=== PATIENT | male | born 1980 | race Caucasian/White ===

== ENCOUNTER 2016-10-18 16:09 | Inpatient (IN) | payer MEDICAID ==
[~2016-10-18] VITALS: Ht 170.2 cm; Wt 89.4 kg
[~2016-10-18 16:09] MED LIST: COLACE100 M1 PO; KEFLEX250 MG PO
[2016-10-18 16:27] VITALS: BP 139/71
--- NOTE | 2016-10-18 17:29 | NUR ---
PATIENT WHEELCHAIR ASSISTED TO BED 2 AT THIS TIME.
--- NOTE | 2016-10-18 17:30 | NUR ---
36/M BIB FAMILY C/O LEFT SIDED CHEST AND BODY PAIN ALTERNATING W/NUMBNESS X 3 DAYS. HX ESRD ON DIALYSIS 4XWEEKLY, HTN, DVT. PT DENIES N/V/D; SKIN IS PINK/WARM/DRY; HD SITE R THIGH + BRUIT & THRILL ; OLD HD SITE L ARM ; AAOX4 ; LUNGS CLEAR BL; HR EVEN AND REGULAR; PT DENIES ANY FEVER, SOB, OR COUGH AT THIS TIME; PATIENT STATES PAIN OF 9/10 AT THIS TIME; PATIENT POSITIONED FOR COMFORT; HOB ELEVATED; BEDRAILS UP X2; BED DOWN. ER MD MADE AWARE OF PT STATUS.
--- NOTE | 2016-10-18 17:30 | NUR ---
Note undone in EDM - 10/18/16 at 1925 by [email or web address] 36/M BIB FAMILY C/O LEFT SIDED CHEST AND BODY PAIN ALTERNATING W/NUMBNESS X 3 DAYS. HX ESRD ON DIALYSIS 4XWEEKLY, HTN, DVT. PT DENIES N/V/D; SKIN IS PINK/WARM/DRY; AAOX4 WITH EVEN AND STEADY GAIT; LUNGS CLEAR BL; HR EVEN AND REGULAR; PT DENIES ANY FEVER, SOB, OR COUGH AT THIS TIME; PATIENT STATES PAIN OF 9/10 AT THIS TIME; PATIENT POSITIONED FOR COMFORT; HOB ELEVATED; BEDRAILS UP X2; BED DOWN. ER MADE AWARE OF PT STATUS.
--- NOTE | 2016-10-18 17:42 | NUR ---
DR KATE EVALUATING PT AT BEDSIDE
--- NOTE | 2016-10-18 17:48 | NUR ---
US AT BEDSIDE
[2016-10-18] MEDS ORDERED: MORPHINE SULFATE 4 MG/ML SYR IVP ONE ×2 (18:05→19:40)
--- NOTE | 2016-10-18 18:32 | NUR ---
X RAY AT BEDSIDE
[2016-10-18] MEDS ORDERED: ACETAMINOPHEN 325 MG TAB PO PRN (19:05)
[2016-10-18] MEDS ORDERED: ONDANSETRON 4 MG/2 ML VIAL IVP PRN (19:05)
[2016-10-18] MEDS ORDERED: HYDROcodone/APAP 7.5/325 MG 1 TAB PO PRN (19:05)
--- NOTE | 2016-10-18 19:15 | NUR ---
GOT REPORT FROM MAXI CAMILO.
--- NOTE | 2016-10-18 19:16 | NUR ---
Pt report given to MAXI TAM. Transfer of care at this time.
--- NOTE | 2016-10-18 19:53 | NUR ---
Patient will be admitted to care of . Admited to TELEMETRY. Will go to [id number]. Belongings list completed. Report to MAXI JACOBS.
--- NOTE | 2016-10-18 19:59 | NUR ---
LAB CALLED ; LACTIC ACID 2.4, ER MADE AWARE.
[2016-10-18 20:10] VITALS: BP 117/71
--- NOTE | 2016-10-18 20:15 | NUR ---
ADMITTED A 36M FROM ER. CAME BY KIRAN DUE TO PAIN ON LT LEG AND LEFT ARM. AWAKE,ALERT AND ORIENTED X4. NO DISTRESS NOTED. ON TELE MONITOR-SR . WITH OLD AV SHUNT ON THE LT ARM. PRESENTLY WITH RT FEMORAL HD GRAFT. HE SAID HE LAST HAVE HD IN [place] SUNDAY. HAVING A HARD TIME MOVING LT LEG AND LT ARM. BOTH FEET ARE DRY AND IN BETWEEN TOES ARE WITH WHITISH SKIN , MOIST. PLANTAR AND HEELS ARE REALLY VERY DRY. PLAN OF CARE DISCUSSED AND VERBALIZED UNDERSTANDING. ORIENTED TO HOSPITAL ROUTINES. CALL LIGHT PLACED WITHIN EASY REACH. WILL FOLLOW UP ADMIT ORDERS AND FROM THERE WILL HAVE PT MADE AWARE .
--- NOTE | 2016-10-18 21:00 | NUR ---
DR. LOPEZ CALLED AND ASKED FOR SOME MEDICAL INFORMATION OF PT. HE SAID DR. ELLIS WILL BE CONSULTED.
[2016-10-18] MEDS ORDERED: hePARIN / DEXT 5% PREMIX 250 ML IV SCH (21:10)
[2016-10-18] MEDS ORDERED: HEPARIN PER PHARMACY MC PRN (21:10)
[2016-10-18] MEDS: CALCIUM ACETATE 667 MG TAB PO SCH (21:15)
--- NOTE | 2016-10-18 23:14 | NUR ---
HEPARIN BOLUS GIVEN ORDERED FROM PROTOCOL. STARTED ANOTHER IV LINE ON THE RT FA#20. CLEAR AND PATENT. HEPARIN DRIP TO START IN THIS SITE WITH ANOTHER RN LICENSED WITNESS.
[2016-10-18] MEDS: MORPHINE SULFATE 2 MG/ML SYR IVP PRN (23:34)
[2016-10-18 23:40] VITALS: BP 120/62
--- NOTE | 2016-10-19 00:20 | NUR ---
VQ SCAN NUCLEAR MEDICINE TECH HERE AT BEDSIDE FOR PULMONARY VQ SCAN ORDER.
--- NOTE | 2016-10-19 01:00 | NUR ---
VQ SCAN DONE. WILL FOLLOW UP RESULT.
--- NOTE | 2016-10-19 03:38 | NUR ---
PAGED DR. CONNER FOR PULMONARY VQ SCAN RESULT, MAGNESIUM 1.7 AND TEMP EARLIER OF 101.2 DR. Gayatri SCHAFER TUBE DRAWER .CALLED BACK . MADE AWARE . NO NEW ORDER FOR NOW . HE SAID WILL TAKE CARE THIS AM.
[2016-10-19 03:45] VITALS: BP 116/73
[2016-10-19] MEDS: MORPHINE SULFATE 2 MG/ML SYR IVP PRN ×3 (03:51→12:47)
--- NOTE | 2016-10-19 07:05 | NUR ---
RECEIVED REPORT FROM MAXI STEVENSON. PATIENT IS ASLEEP BUT EASILY AWAKEN, AAOX4, SKIN IS INTACT, PT HAS LEFT FEMORAL GRAFT, OLD SHUNT IN THE LEFT ARM. PT IS RECEIVING HEPARIN DRIP @ 1400 UNITS/HR ON IV RT FA 20G, RT HAND IV FLUSHED PATENT AND INTACT ON SALINE LOCK 24G. INITIAL ASSESSMENT DONE, NO S/S OF RESPIRATORY DISTRESS NOTED, PATIENT COMPLAINED OF 9/10 PAIN LEVEL ON LEFT ARM AND LEFT LEG. WILL MEDICATE. DISCUSSED PLAN OF CARE, PT VERBALIZED UNDERSTANDING. SAFETY/FALL PRECAUTION ENFORCED, CALL LIGHT WITHIN REACH. WILL CONTINUE TO MONITOR.
--- NOTE | 2016-10-19 07:30 | NUR ---
DR. EDWARDS FROM THE GROUP HERE. MADE AWARE THAT DR. ELLIS WAS PAGED BUT UNABLE TO GET HOLD OF HIM. . HE SAID DR. HOLT TO TAKE OVER FOR DR. ELLIS IS OUT OF TOWN. ENDORSED PT IN STABLE CONDITION TO AM NURSE.
[2016-10-19 08:00] VITALS: BP 122/70
--- NOTE | 2016-10-19 08:19 | NUR ---
PATIENT HAS BEEN SCREENED AND CATEGORIZED MODERATE NUTRITION RISK. PATIENT WILL BE SEEN WITHIN 3-5 DAYS OF ADMISSION. 10/21/16-10/23/[address]
[2016-10-19] MEDS: CALCIUM ACETATE 667 MG TAB PO SCH ×2 (08:29→17:42)
[2016-10-19] MEDS: DOCUSATE SODIUM 100 MG GELCAP PO SCH (08:29)
[2016-10-19] MEDS ORDERED: MAG SULF 2000 MG/WATER PREMIX 50 ML IV SCH (08:30)
--- NOTE | 2016-10-19 08:30 | NUR ---
DUE MEDS GIVEN, PT TOLERATED WELL. CALL LIGHT WITHIN REACH. WILL CONTINUE TO MONITOR.
[2016-10-19] MEDS: FAMOTIDINE 20 MG TAB PO SCH (08:54)
[2016-10-19] MEDS ORDERED: ALBUTEROL SULFATE/IPRATROPIU 3 ML SOL IH PRN (09:02)
--- NOTE | 2016-10-19 10:59 | NUR ---
CM NOTE INITIAL REVIEW FAXED TO [facility] / FAX# [phone], ATTN: ANIKA #[phone]
--- NOTE | 2016-10-19 11:45 | NUR ---
SPOKE TO MIRTHA, DIALYSIS NURSE, INFORMED OF PT'S HEMODIALYSIS FOR TODAY, 10/19/16. SHE SAID SHE WILL BE HERE LATER.
[2016-10-19 12:00] VITALS: BP 126/68
--- NOTE | 2016-10-19 12:00 | NUR ---
PT SLEEPING, NO S/S OF RESPIRATORY DISTRESS OR DISCOMFORT NOTED, CALL LIGHT WITHIN REACH. WILL CONTINUE TO MONITOR.
--- NOTE | 2016-10-19 12:30 | NUR ---
WOUND CARE EVALUATION NOTES: REASON FOR EVALUATION: BILATERAL FEET MOIST IN BETWEEN TOES COMPLETE SKIN ASSESSMENT DONE ON THIS 36 Y/O MALE PATIENT FROM HOME TO [facility], WITH INITIAL DIAGNOSIS OF DVT. PAST MEDICAL HISTORY INCLUDE ESRD, HTN, ASTHMA, CELLULITIS, GYNECOMASTIA, AND GALACTORRHEA. ALL ABOVE INFORMATION WAS OBTAINED FROM THE ADMISSION H&P. LABS ARE WBC 7.9, H/H 12.0/38.0, PT/INR 11.5/1.2 AND PTT 52.9. CURRENT MEDS INCLUDE MORPHINE, HEPARIN, AND NORCO. PATIENT IS AWAKE, ALERT AND ORIENTED TO PERSON, PLACE AND TIME. SKIN WARM TO TOUCH WNL, TOENAILS ARE THICKENED AND DISCOLORED, EDEMA NOTED BLE AND BUE, FEW HAIR GROWTH AND STRONG PEDAL PULSES. URINE ANURIC, ABLE TO AMBULATE. ABLE TO TURN SELF WITH NO ASSISTANCE. OLD SCARRING ON LEFT ARM FROM OLD DIALYSIS SHUNT, DIALYSIS ACCESS ON RT GROIN HAS BRUIT AND THRILL. INITIAL PLAN OF CARE AND PRESSURE PREVENTIVE MEASURES DISCUSSED, ABLE TO VERBALIZE UNDERSTANDING. INTEGUMENTARY: LEFT AND RIGHT TOES - MOIST AND RED RECOMMENDATIONS: -CLEANSE BILATERAL TOES WITH MILD SOAP AND WATER, PAT DRY, INTERDRY CLOTH IN BETWEEN TOES. -TURN AND REPOSITION PATIENT Q2H -ASSESS AND MONITOR SKIN CONDITION DURING POSITION CHANGE, PLEASE PAY PARTICULAR ATTENTION TO SACRALCOCCYX, ELBOWS AND HEELS -OFFLOAD BILATERAL HEELS BY PLACING PILLOWS UNDER CALVES AT ALL TIMES, UNLESS OTHERWISE CONTRAINDICATED -KEEP SKIN CLEAN AND DRY AT ALL TIMES. RECOMMENDATIONS DISCUSSED WITH PRIMARY RN. WILL FOLLOW UP PATIENT Q 7 DAYS AND PRN. PLEASE CONTACT C FOR ANY CONCERNS, QUESTIONS AND CHANGERS IN SKIN CONDITION.
--- NOTE | 2016-10-19 13:15 | NUR ---
SPOKE TO DEVONTE FROM PHARMACY, PER DEVONTE ITS OKAY TO STOP THE HEPARIN AT 1900 BECAUSE PT WILL BE GETTING APIX[facility]AN AT 2100 TONIGHT.
[2016-10-19] MEDS ORDERED: INTERDRY CLOTH TP SCH (13:40)
[2016-10-19] MEDS ORDERED: INTERDRY CLOTH TP PRN (13:40)
--- NOTE | 2016-10-19 14:25 | NUR ---
SPOKE TO MIRTHA, DIALYSIS NURSE, SHE SAID THAT PT'S RIGHT FEMORAL GRAFT IS CLOT. MIRTHA SPOKE TO DR. LANTIGUA, PER MIRTHA, DR. LANTIGUA STATED THAT HE WILL COME TO SEE THE PT TOMORROW 10/20/16 TO DE- CLOT PT'S DIALYSIS ACCESS AND WILL DO THE DIALYSIS WELL BY THE DIALYSIS NURSE, MIRTHA.
[2016-10-19 16:00] VITALS: BP 109/71
--- NOTE | 2016-10-19 16:27 | NUR ---
PT IS SLEEPING. NO S/S OF RESPIRATORY DISTRESS, CALL LIGHT WITHIN REACH. WILL CONTINUE TO MONITOR.
[2016-10-19] MEDS ORDERED: CALCIUM ACETATE 667 MG TAB PO SCH (17:00)
--- NOTE | 2016-10-19 18:10 | NUR ---
BREAK OUT MAN AT BEDSIDE WORKING ON THE PT.
[2016-10-19] MEDS: MORPHINE SULFATE 4 MG/ML SYR IVP PRN ×2 (18:35→22:08)
--- NOTE | 2016-10-19 18:40 | NUR ---
SPOKE TO DR. FRASER AND INFORMED REGARDING PT'S POTASSIUM OF 6 AND PT'S DIALYSIS WAS CANCELLED TODAY. DR. FRASER STATED THAT SHE WILL LOOK INTO IT AND WILL PUT IN ORDER.
[2016-10-19] MEDS ORDERED: SODIUM POLYSTYRENE 15 GM/60 ML UDBTL PO SCH (18:50)
--- NOTE | 2016-10-19 19:02 | NUR ---
PT ENDORSED TO MAXI STEVENSON. FOR CONTINUITY OF CARE. PT IS STABLE AT THIS TIME.
--- NOTE | 2016-10-19 19:40 | NUR ---
RECEIVED PT IN STABLE CONDITION FROM AM NURSE. ON TELE MONITOR. AWAKE,ALERT AND ORIENTED X4. WITH NO ACUTE DISTRESS NOTED. DENIES ANY PAIN AT THIS TIME. ON CONTACT ISOLATION DUE TO HX: MRSA WOUND. HL ON THE RT FA#20 AND RT HAND #24. BOTH CLEAR AND PATENT. HAS RT GROIN HD GRAFT -CLOTTED. WILL BE DE -CLOT ADEEL REPORTED. OLD LR ARM AV SHUNT, NOT WORKING, SWOLLEN . WITH MEI FEET TOES MOIST, HAS INTER DRY. INSTRUCTED TO CALL IF NEED TO GET UP ,RAYO WHEN GOING TO BATHROOM. CALL LIGHT PLACED WITHIN EASY REACH. WILL CONTINUE TO MONITOR.
[2016-10-19 20:00] VITALS: BP 128/76
[2016-10-19] MEDS: APIXABAN 2.5 MG TAB PO SCH (20:23)
--- NOTE | 2016-10-19 22:00 | NUR ---
AWAKE, AND C.O PAIN ON THE LT ARM, THE ONE WITH OLD AV SHUNT. WILL MEDICATE ORDERED.
[2016-10-20] VITALS (7 sets, daily range): BP systolic 126–141; BP diastolic 69–84
--- NOTE | 2016-10-20 00:10 | NUR ---
VITAL SIGNS TAKEN. STABLE . NO C/O PAIN AT THIS TIME.
[2016-10-20] MEDS: MORPHINE SULFATE 4 MG/ML SYR IVP PRN ×4 (01:32→16:40)
--- NOTE | 2016-10-20 03:00 | NUR ---
ASLEEP. NO S/S OF ANY DISCOMFORT NOR PAIN NOTED. WILL CONTINUE TO MONITOR.
--- NOTE | 2016-10-20 06:30 | NUR ---
MADE AROUNDS. PT IS ASLEEP. NO DISTRESS NOTED.
--- NOTE | 2016-10-20 07:02 | NUR ---
ENDORSED PT IN STABLE CONDITION TO AM NURSE FOR CONTINUITY OF CARE.
--- NOTE | 2016-10-20 07:04 | NUR ---
RECEIVED REPORT FROM MAXI STEVENSON. PATIENT IS AAOX4, VERY DRY SKIN ON BILATERAL FEET AND REDNESS NOTED IN BETWEEN TOES BILATERAL WITH INTER DRY CLOTH IN BETWEEN, PT HAS LEFT FEMORAL GRAFT, OLD SHUNT IN THE LEFT ARM. IV RT FA 20G, RT HAND IV FLUSHED PATENT AND INTACT ON SALINE LOCK 24G. INITIAL ASSESSMENT DONE, NO S/S OF RESPIRATORY DISTRESS NOTED, PATIENT COMPLAINED OF 9/10 PAIN LEVEL ON LEFT ARM AND LEFT LEG. WILL MEDICATE. DISCUSSED PLAN OF CARE, PT VERBALIZED UNDERSTANDING. SAFETY/FALL PRECAUTION ENFORCED, CALL LIGHT WITHIN REACH. WILL CONTINUE TO MONITOR.
[2016-10-20] MEDS: CALCIUM ACETATE 667 MG TAB PO SCH ×2 (08:19→16:39)
--- NOTE | 2016-10-20 08:19 | NUR ---
DUE MEDS GIVEN, PT TOLERATED WELL, CALL LIGHT WITHIN REACH, WILL CONTINUE TO MONITOR
[2016-10-20] MEDS: DOCUSATE SODIUM 100 MG GELCAP PO SCH (08:20)
[2016-10-20] MEDS: APIXABAN 2.5 MG TAB PO SCH ×2 (08:28→21:45)
--- NOTE | 2016-10-20 09:00 | NUR ---
RECEIVED A CALL FROM DR. QUINTANA, GEAR HOBBER, HE STATED THAT HIS GROUP IS NOT THE GEAR HOBBER FOR THE PT AND IT IS DR. ELLIS'S GROUP.
--- NOTE | 2016-10-20 09:05 | NUR ---
NOTIFIED DR. GUTIERREZ REGARDING DR. QUINTANA'S GROUP IS NOT THE SUPERINTENDENT MENAGERIE OF THE PT.
[2016-10-20] MEDS ORDERED: SODIUM POLYSTYRENE 15 GM/60 ML UDBTL PR SCH (10:47)
--- NOTE | 2016-10-20 10:50 | NUR ---
SPOKE TO DR. GUTIERREZ AND HE STATED THAT DR. HODGES WILL BE THE PT'S ACADEMIC HOSPITALIST.
[2016-10-20] MEDS ORDERED: HYDROcodone/APAP 5/325 MG 1 TAB TAB PO PRN (11:00)
[2016-10-20] MEDS ORDERED: SODIUM POLYSTYRENE 15 GM/60 ML UDBTL PO SCH (11:01)
--- NOTE | 2016-10-20 11:55 | NUR ---
DUE MEDS GIVEN. PT TOLERATED WELL. NO S/S OF RESPIRATORY DISTRESS OR DISCOMFORT NOTED. FAMILY MEMBERS AT BEDSIDE, QUESTIONS ANSWERED, CALL LIGHT WITHIN REACH. WILL CONTINUE TO MONITOR.
--- NOTE | 2016-10-20 12:40 | NUR ---
FAXED CONCURRENT REVIEW TO [facility] [phone] PHONE ANIKA [phone] [id number]
--- NOTE | 2016-10-20 13:02 | NUR ---
PT RESTING ON BED TALKING TO FAMILY MEMBERS AT BEDSIDE. ALL NEEDS MET AT THIS TIME. CALL LIGHT WITHIN REACH. WILL CONTINUE TO MONITOR.
--- NOTE | 2016-10-20 15:40 | NUR ---
PRODUCTION OR PLANT ENGINEER AT BEDSIDE DRAWING PT'S BLOOD.
--- NOTE | 2016-10-20 16:00 | NUR ---
SPOKE TO DR. ELLIS, PT'S REAL ESTATE RECRUITER, UPDATED ON PT'S CONDITION AND QUESTIONS ANSWERED, NOTIFIED THAT DR. HODGES IS COMING TO SEE THE PT. DR. ELLIS STATED THAT HE WILL CALL DR. HODGES AND WILL NOTIFY ABOUT PT'S CURRENT STATUS.
[2016-10-20] MEDS ORDERED: INSULIN ASPART SLIDING SCALE 100 UNITS/ML VIAL SUBQ PRN (16:50)
[2016-10-20] MEDS ORDERED: BLOOD GLUCOSE MONITORING 1 DEV DEV FS SCH (16:50)
[2016-10-20] MEDS ORDERED: DEXTROSE 50% 50 ML SYR IVP PRN ×3 (16:50→20:45)
[2016-10-20] MEDS ORDERED: SODIUM POLYSTYRENE 15 GM/60 ML UDBTL PO PRN (16:50)
[2016-10-20] MEDS ORDERED: LACTULOSE 20 GM/30 ML UDC PO SCH (17:00)
--- NOTE | 2016-10-20 17:40 | NUR ---
CALLED DR. HODGES'S OFFICE TO FOLLOW UP ON PT'S CONSULT, GOT A CALL BACK FROM TERENCE SCHULZ. NOTIFIED AND UPDATED REGARDING PT'S CURRENT STATUS AND TOLD HIM THAT DR. GUTIERREZ ALREADY CALLED DR. HODGES THIS MORNING AND DR. HODGES SAID HE WILL BE COMING BUT DR. HODGES HAS NOT COME IN TO SEE THE PT YET. DR. AGUILAR STATED THAT HE WILL CALL DR. HODGES AND DISCUSS WITH HIM ABOUT THE CONSULT AND WILL GIVE ME A CALL BACK.
[2016-10-20] MEDS ORDERED: COMMUNICATION ORDER MC PRN (17:45)
[2016-10-20] MEDS ORDERED: BLOOD GLUCOSE MONITORING 1 DEV DEV FS PRN ×3 (18:10→18:15)
[2016-10-20] MEDS ORDERED: INSULIN HUMAN REGULAR 100 UNITS/ML 10 ML VIAL IV PRN (18:15)
--- NOTE | 2016-10-20 18:20 | NUR ---
DR. HODGES IS IN THE PT'S ROOM TALKING TO THE PT.
--- NOTE | 2016-10-20 19:11 | NUR ---
ENDORSED PT TO MAXI BERMUDEZ FOR CONTINUITY OF CARE. PT IS STABLE AT THIS TIME.
--- NOTE | 2016-10-20 19:20 | NUR ---
RECEIVED PT FROM FABY RN PT FRISIAN SPEAKER AAOX4 AMBULATORY ON ESRD AV SHUNT ON LEFT ARM DOES NOT WORK , , ON RT FEMORAL GRAFT CLOTED PENDIG A NEW ACCESS FOR DIALYSIS , IV ON RT FA INFUSING WELL TKO ON TELEMETRY SR INITIAL ASSESSMENT DONE
--- NOTE | 2016-10-20 20:25 | NUR ---
AT 2024 DR CLARK WAS NOTIFY K=6.7 AND ORDERS TO FOLLOW
[2016-10-20] MEDS ORDERED: SODIUM BICARBONATE 8.4% 50 MEQ/50 ML VIAL INJ ONE (20:35)
[2016-10-20] MEDS ORDERED: LACTULOSE 20 GM/30 ML UDC PO ONE (20:35)
[2016-10-20] MEDS ORDERED: CALCIUM GLUCONATE 10% 1,000 MG in NACL 0.9% 50 ML IV ONE (20:35)
[2016-10-20] MEDS ORDERED: SODIUM POLYSTYRENE 15 GM/60 ML UDBTL PR ONE (20:35)
[2016-10-20] MEDS ORDERED: FUROSEMIDE 100 MG/10 ML VIAL IV SCH (20:45)
[2016-10-20] MEDS ORDERED: INSULIN HUMAN REGULAR 100 UNITS/ML 10 ML VIAL SUBQ SCH (20:45)
[2016-10-20] MEDS ORDERED: DEXT 5% /NACL 0.9% 1,000 ML IV SCH (20:45)
--- NOTE | 2016-10-20 21:00 | NUR ---
BLOOD SUGAR TEST 124
[2016-10-20] MEDS ORDERED: CALCIUM GLUCONATE 10% 1000 MG/10 ML VIAL ONE (21:29)
[2016-10-20] MEDS: BLOOD GLUCOSE MONITORING 1 DEV DEV FS SCH (21:55)
[2016-10-20] MEDS: ALBUTEROL SULFATE/IPRATROPIU 3 ML SOL IH SCH (23:49)
[2016-10-21] VITALS: BP 127/78
--- NOTE | 2016-10-21 00:25 | NUR ---
BLOOD SUGAR TEST 58 WILL BE FOLLOW PROTOCOL TO GIVE D50% IV P PT AAOX4 NOT SIGNS OF HYPOGLYCEMIA
[2016-10-21] MEDS: MORPHINE SULFATE 4 MG/ML SYR IVP PRN (00:48)
[2016-10-21] MEDS: ALBUTEROL SULFATE/IPRATROPIU 3 ML SOL IH SCH (03:48)
[2016-10-21 04:00] VITALS: BP 113/74
--- NOTE | 2016-10-21 04:00 | NUR ---
PT HAS BEEN MONITORING CLOSE ON TELEMETRY SR , LIQUID STOL AFTER KAYAXALETE AND LACTULOSE GIVE.
[2016-10-21] MEDS ORDERED: LACTULOSE 20 GM/30 ML UDC PO SCH (05:20)
[2016-10-21] MEDS ORDERED: SODIUM POLYSTYRENE 15 GM/60 ML UDBTL PO SCH (05:20)
[2016-10-21] MEDS ORDERED: NACL 0.9% 500 ML IV ONE (05:25)
--- NOTE | 2016-10-21 06:00 | NUR ---
DR CLARK IS HERE AND SEE THE PT AND ORDERS TO FOLLOW
[2016-10-21] MEDS: BLOOD GLUCOSE MONITORING 1 DEV DEV FS SCH (06:49)
--- NOTE | 2016-10-21 07:00 | NUR ---
BLOOD SUGAR TEST 135 , AND REPORT GIVEN TO MIRA FOR CONTINUITY OF CARE
--- NOTE | 2016-10-21 07:01 | NUR ---
RECEIVED REPORT FROM MAXI BERMUDEZ. PT IS AAOX4, PT ON ROOM AIR WITH NO S/S OF DISTRESS NOTED. PT ON CONTACT PRECAUTIONS WITH SIGNS POSTED ON WALL, PRECAUTIONS IN PLACE. IV TO RIGHT FA #20, PATENT AND INTACT. SKIN INTACT. NO N/V OR PAIN INDICATED. ALL SAFETY PRECAUTIONS IN PLACE, SIDE RAILSX2, BED IN LOW POSITION, AND CALL LIGHT WITHIN REACH. WILL CONTINUE TO MONITOR. Addendum: 10/21/16 at 0820 by Doris Chun RN FOUR AV SHUNTS NOTED TO LEFT ARM, AND AV SHUNT TO RIGHT GROIN NOTED.
[2016-10-21 08:00] VITALS: BP 112/78
[2016-10-21] MEDS ORDERED: CALCIUM ACETATE 667 MG TAB PO SCH (08:00)
[2016-10-21] MEDS: APIXABAN 2.5 MG TAB PO SCH (09:00)
[2016-10-21] MEDS: FAMOTIDINE 20 MG TAB PO SCH (09:00)
[2016-10-21] MEDS ORDERED: ALLOPURINOL 100 MG TAB PO SCH (09:00)
[2016-10-21] MEDS: DOCUSATE SODIUM 100 MG GELCAP PO SCH (09:00)
--- NOTE | 2016-10-21 09:13 | NUR ---
PATIENT REFUSED MORNING MEDICATIONS, DR Parham MADE AWARE. PT TALKED TO DR JERRY, PT REFUSING SURGERY. DR HODGES AWARE OF PT REFUSING DIALYSIS DEVICE. PT STATING HE WANTS TO TRANSFER TO ANOTHER HOSPITAL. PT EXPLAINED THE RISK OF NOT TAKING MEDICATION, AND NOT COMPLYING WITH TREATMENT. PT VERBALIZED UNDERSTANDING.
--- NOTE | 2016-10-21 10:20 | NUR ---
DR PATEL IN TO SEE PT. PT STATED HE DID NOT WANT TO HAVE SURGERY DONE BY DR JERRY. PT WANTS A SURGEON TO ATTEMPT FIXING ONE OF HIS DIALYSIS DEVICE BEFORE PLACING A NEW ONE. PT TALKED TO DR ELLIS OVER THE PHONE, DR ELLIS TO ACCEPT PT THROUGH ER. PT DECIDED TO GO AMA, PT TO GO TO [facility] WHEN RELEASED. PT'S MOTHER AND BROTHER AT BEDSIDE. PT AAOX4 WHEN MAKING DECISION. DR PATEL EXPLAINED RISK OF LEAVING AMA. PT VERBALIZED UNDERSTANDING. PT GIVEN CHOICE FOR POSSIBILITY TO BE TRANSFERRED, OR HAVE SURGERY AT [place]. PT REFUSED.
--- NOTE | 2016-10-21 10:45 | NUR ---
PT LEFT AMA. PAPERWORK SIGNED, ALL QUESTIONS ANSWERED. ALL BELONGINGS IN PT POSSESSION. IV DC'ED WITH CANNULA INTACT, TELE BOX REMOVED. NOTIFIED EDGE BANDER HAND. PT WHEELED OUT OF UNIT WITH FAMILY PRESENT AT BEDSIDE, PT AMBULATED TO CAR WITH STEADY GAT. PT TO GO TO [facility] EMERGENCY ROOM SOON POSSIBLE, DR ELLIS TO ADMIT PT.
--- NOTE | 2016-10-21 13:01 | NUR ---
RISK IDENTIFICATION REPORT COMPLETED Unique Id: [id number]. [facility] CONFIRMED PT AT FACILITY.
== END 2016-10-21 10:45 | disposition left against medical advice (07) | DRG 197 ==
LOC: MED 16:09 → MTU 19:07
PROVIDERS: ADMIT Family Medicine; ATTEND Family Medicine
PROC: 5A1D00Z (ICD-10-PCS; principal; 2016-10-19)
DX: I82.412 Acute embolism and thrombosis of left femoral vein (principal); N17.0 Acute kidney failure with tubular necrosis; E44.0 Moderate protein-calorie malnutrition; E87.2 Acidosis; E83.39 Other disorders of phosphorus metabolism; E83.41 Hypermagnesemia; E86.0 Dehydration; J45.909 Unspecified asthma, uncomplicated; I12.0 Hypertensive chronic kidney disease with stage 5 chronic kidney disease or end stage renal disease; N18.6 End stage renal disease; R73.9 Hyperglycemia, unspecified; E83.52 Hypercalcemia; E87.5 Hyperkalemia; E87.1 Hypo-osmolality and hyponatremia; E87.8 Other disorders of electrolyte and fluid balance, not elsewhere classified; D63.1 Anemia in chronic kidney disease; F17.210 Nicotine dependence, cigarettes, uncomplicated; Z53.21 Procedure and treatment not carried out due to patient leaving prior to being seen by health care provider; Z99.2 Dependence on renal dialysis; Z79.899 Other long term (current) drug therapy; Z68.30 Body mass index [BMI] 30.0-30.9, adult

== ENCOUNTER 2017-12-09 16:20 | Emergency (ER) | payer MEDICAID, OTHER ==
[~2017-12-09] VITALS: Ht 170.2 cm; Wt 82.3 kg
[~2017-12-09 16:20] MED LIST changes: +CEPH250C16 PO; -COLACE100 M1 PO; -KEFLEX250 MG PO
[2017-12-09 16:30] VITALS: BP 126/74
[2017-12-09] MEDS ORDERED: IBUPROFEN 800 MG TAB PO ONE (16:55)
[2017-12-09 17:47] VITALS: BP 124/72
== END 2017-12-09 17:46 | disposition home or self-care (01) ==
LOC: MED 16:20
DX: M75.32 Calcific tendinitis of left shoulder (principal); J45.909 Unspecified asthma, uncomplicated; I10 Essential (primary) hypertension
CPT/HCPCS: 73030; 93971; 99284; Q0092

== ENCOUNTER 2021-02-09 03:29 | Emergency (ER) | payer OTHER ==
[~2021-02-09] VITALS: Ht 170.2 cm; Wt 86.2 kg
--- NOTE | 2021-02-09 03:32 | NUR ---
[facility]AD[facility] ALS TO ER BED 2
[2021-02-09 03:34] VITALS: BP 122/82
--- NOTE | 2021-02-09 03:46 | NUR ---
41 Y/0 MALE BIBA FROM HOME C/O LT RIB PAIN THAT RADIATES TO LT HIP PAIN. PT WAS IN [facility] A WEEK AGO FOR RIB TRAUMA. PT WITH FUNCTIONING DIALYSIS ACCESS ON R LEG. PT ALSO WITH OLD DIALYSIS ACCESS ON RIGHT AND LEFT ARM. HO PMH: RENAL DSE, DIALYSIS (M, W, F, SAT)
--- NOTE | 2021-02-09 03:52 | NUR ---
RADIOLOGY AT BEDSIDE
[2021-02-09] MEDS ORDERED: KETOROLAC 30 MG/ML VIAL IM ONE (03:55)
[2021-02-09] MEDS ORDERED: MORPHINE SULFATE 4 MG/ML SYR IM ONE (03:55)
--- NOTE | 2021-02-09 04:57 | NUR ---
PT ASLEEP. O2 SAT 88. PT PLACED ON O2 2LPM/NC. HOB ELEVATED. CURRENT O2 SAT 99%. PT NOT IN DISTRESS. WILL CONTINUE TO MONITOR.
[2021-02-09] MEDS ORDERED: ACET-5636 PO (05:52)
[2021-02-09 06:40] VITALS: BP 121/67
--- NOTE | 2021-02-09 06:40 | NUR ---
Patient discharged with v/s stable. Written and verbal after care instructions given and explained. Patient alert, oriented and verbalized understanding of instructions. Wheel Chair Assisted with to car. All questions addressed prior to discharge. ID band removed. Patient advised to follow up with PMD. Rx of PERCOCET given. Patient educated on indication of medication including possible reaction and side effects. Opportunity to ask questions provided and answered.
== END 2021-02-09 06:40 | disposition home or self-care (01) ==
LOC: MED 03:29
DX: R07.89 Other chest pain (principal); M25.552 Pain in left hip; J45.909 Unspecified asthma, uncomplicated; I10 Essential (primary) hypertension; Z79.899 Other long term (current) drug therapy
CPT/HCPCS: 71045; 73502; 96372; 99284; J1885; J2270

== ENCOUNTER 2021-12-19 14:16 | Inpatient (IN) | payer OTHER ==
[~2021-12-19] VITALS: Ht 170.2 cm; Wt 72.1 kg
[~2021-12-19 14:16] MED LIST changes: +ACET-5636 PO
--- NOTE | 2021-12-19 14:17 | NUR ---
DANELLE PAINTER VIA GURNEY TO BED 08.
[2021-12-19 14:20] VITALS: BP 88/20
--- NOTE | 2021-12-19 14:20 | NUR ---
41 Y/O M BIBA C/O SOB AND LOWER BACK 10/10 PAIN TODAY. PT MOTHER CALLED 911, EMR FOUND PT IN FRONT SEAT OF TRUCK DIAPHORETIC, PALE, COOL, AND SOB. PT COMPLAINS THAT THROAT FEELS TIGHT. PT HAD NECK SURGERY [address] [facility]. UNABLE TO AMBULATE. 18G IV LFA. DENIES N/V/D; SKIN IS PINK/WARM/DRY; AAOX4. LUNGS CLEAR BL; HR EVEN AND REGULAR; PT DENIES ANY FEVER AT THIS TIME; PATIENT STATES PAIN OF 10/10 AT THIS TIME; VSS; PATIENT POSITIONED FOR COMFORT; HOB ELEVATED; BEDRAILS UP X2; BED DOWN. ER MD MADE AWARE OF PT STATUS. PMH: OSTEOPOROSIS, RENAL FAILURE, HTN. MEDS: MIDODRINE, ELIQUIS, ROBAXIN, FERRIC CITRATE, DICLOFENAC SODIUM NKA
[2021-12-19] MEDS ORDERED: cefTRIAXone 1,000 MG in DEXT 5% MINI-BAG PLUS 50 ML IV ONE (14:25)
[2021-12-19] MEDS ORDERED: NACL 0.9% 1,000 ML IV SCH (14:25)
[2021-12-19] MEDS ORDERED: cefTRIAXone 1,000 MG VIAL ONE (14:39)
[2021-12-19 15:34] LABS: BASOPHILS % (AUTO) 0.6 % (0.0-2.0); EOSINOPHILS # (AUTO) 0.1 K/uL (0-0.4); EOSINOPHILS % (AUTO) 3.5 % (0.0-4.0); HEMATOCRIT 30.7 % (36-52); HEMOGLOBIN 9.7 g/dL (12.0-18.0); LYMPHOCYTES # (AUTO) 0.9 K/uL (2.0-11.5); LYMPHOCYTES % (AUTO) 22.1 % (20.5-51.1); MEAN CORPUSCULAR HEMOGLOBIN 27 pg (27-31); MEAN CORPUSCULAR HGB CONC 32 g/dL (33-37); MEAN CORPUSCULAR VOLUME 85.1 fL (80-94); MONOCYTES # (AUTO) 0.4 K/uL (0.8-1.0); MONOCYTES % (AUTO) 10.9 % (1.7-9.3); NEUTROPHILS # (AUTO) 2.4 K/uL (1.8-7.7); NEUTROPHILS % (AUTO) 62.9 % (42.2-75.2); PLATELET COUNT (AUTO) 144 K/uL (140-450); RED BLOOD CELL COUNT(AUTO) 3.61 MIL/uL (4.20-6.10); RED CELL DISTRIBUTION WIDTH 17.9 % (11.6-13.7); WHITE BLOOD COUNT (AUTO) 3.9 K/uL (4.8-10.8)
[2021-12-19] MEDS ORDERED: NACL 0.9% 1,000 ML IV ONE (15:50)
[2021-12-19] MEDS ORDERED: KETOROLAC 30 MG/ML VIAL IVP ONE (15:50)
[2021-12-19] MEDS ORDERED: KETOROLAC 30 MG/ML VIAL ONE (15:52)
--- NOTE | 2021-12-19 15:55 | NUR ---
PT COMPLAIN OF 10/10 BACK PAIN. MEDICATED WITH TORODOL PER ER MD ORDER. NADR. WILL CONTINUE TO MONITOR.
[2021-12-19 16:12] LABS: ALBUMIN 3.5 g/dL (3.4-5.0); ANION GAP 18.3 (8-16); CARBON DIOXIDE 22.3 mmol/L (21-32); POTASSIUM 4.6 mmol/L (3.5-5.1); TOTAL BILIRUBIN 1.6 mg/dL (0.0-1.0)
[2021-12-19 16:13] LABS: CREATININE 8.2 mg/dL (0.6-1.3)
[2021-12-19] MEDS ORDERED: MAGNESIUM OXIDE 400 MG TAB PO PRN (17:15)
[2021-12-19] MEDS ORDERED: MORPHINE SULFATE 4 MG/ML SYR IVP PRN (17:15)
[2021-12-19] MEDS ORDERED: POTASSIUM CHLORIDE 10 MEQ TABER PO PRN (17:15)
[2021-12-19] MEDS ORDERED: ACETAMINOPHEN 325 MG TAB PO PRN (17:15)
[2021-12-19] MEDS ORDERED: VANCOMYCIN PER PHARMACY MC PRN (17:15)
[2021-12-19] MEDS ORDERED: HYDROcodone/APAP 5/325 MG 1 TAB TAB PO PRN (17:15)
[2021-12-19] MEDS ORDERED: ONDANSETRON 4 MG/2 ML VIAL IVP PRN (17:15)
--- NOTE | 2021-12-19 17:27 | NUR ---
ROCEPHIN NON ADMIN DUE TO ONE DOSE ALREADY GIVEN SEE MAR.
[2021-12-19] MEDS ORDERED: VANCOMYCIN 500 MG in DEXTROSE 5% 100 ML IV SCH (18:00)
[2021-12-19] MEDS ORDERED: PRO5 PO (18:18)
[2021-12-19] MEDS ORDERED: CINA90TA PO (18:18)
[2021-12-19] MEDS ORDERED: METH100S16 PO (18:18)
[2021-12-19] MEDS ORDERED: APIX5TAB PO (18:18)
[2021-12-19] MEDS ORDERED: FERR1TAB42 PO (18:18)
[2021-12-19] MEDS ORDERED: DYN250 PO (18:18)
[2021-12-19] MEDS ORDERED: VANCOMYCIN 500 MG VIAL ONE (18:20)
[2021-12-19] MEDS ORDERED: diphenhydrAMINE 50 MG/ML VIAL ONE (19:07)
[2021-12-19] MEDS ORDERED: diphenhydrAMINE 50 MG/ML VIAL IVP ONE (19:10)
--- NOTE | 2021-12-19 19:26 | NUR ---
ENDORSED BEDSIDE REPORT TO AGUSTO BERNAL RN FOR CONTINUITY OF CARE. NO ACUTE DISTRESS AT THIS TIME.
--- NOTE | 2021-12-19 20:14 | NUR ---
PT MOVED TO ICU
--- NOTE | 2021-12-19 21:52 | NUR ---
2014- Patient will be admitted to care of DR. MONTEIRO. Admited to ICU. Will go to room 8. Belongings list completed. Report to FLAVIA.
[2021-12-19 22:00] VITALS: BP 109/45
[2021-12-20] VITALS (10 sets, daily range): BP systolic 94–126; BP diastolic 49–80
--- NOTE | 2021-12-20 01:02 | NUR ---
MIDLINE INSERTED TO SAMIRA. PT ASLEEP, EASILY AROUSABLE.NO SOB NOTED ON ROOM AIR.WILL CONTINUE TO CLOSELY MONITOR PT
--- NOTE | 2021-12-20 03:00 | NUR ---
PT ASLEEP AT THIS TIME EASILY AROUSABLE.NO SOB NOTED ON ROOM AIR.DENIES PAIN.ABLE TO SELF TURN
[2021-12-20 05:38] LABS: BASOPHILS % (AUTO) 0.7 % (0.0-2.0); EOSINOPHILS # (AUTO) 0.1 K/uL (0-0.4); EOSINOPHILS % (AUTO) 3.8 % (0.0-4.0); HEMATOCRIT 32.5 % (36-52); HEMOGLOBIN 10.1 g/dL (12.0-18.0); LYMPHOCYTES # (AUTO) 0.9 K/uL (2.0-11.5); LYMPHOCYTES % (AUTO) 23.5 % (20.5-51.1); MEAN CORPUSCULAR HEMOGLOBIN 27 pg (27-31); MEAN CORPUSCULAR HGB CONC 31 g/dL (33-37); MEAN CORPUSCULAR VOLUME 86.9 fL (80-94); MONOCYTES # (AUTO) 0.4 K/uL (0.8-1.0); MONOCYTES % (AUTO) 10.7 % (1.7-9.3); NEUTROPHILS # (AUTO) 2.3 K/uL (1.8-7.7); NEUTROPHILS % (AUTO) 61.3 % (42.2-75.2); PLATELET COUNT (AUTO) 147 K/uL (140-450); RED BLOOD CELL COUNT(AUTO) 3.74 MIL/uL (4.20-6.10); RED CELL DISTRIBUTION WIDTH 19.2 % (11.6-13.7); WHITE BLOOD COUNT (AUTO) 3.8 K/uL (4.8-10.8)
[2021-12-20 06:14] LABS: ANION GAP 14.5 (8-16); CARBON DIOXIDE 24.5 mmol/L (21-32)
[2021-12-20 06:29] LABS: CREATININE 8.6 mg/dL (0.6-1.3)
--- NOTE | 2021-12-20 07:15 | NUR ---
RECEIVED PT AWAKE A&OX4, ABLE TO VERBALIZE NEEDS. BREATHING EVEN AND UNLABORED. SINUS RHYTHM ON MONITOR. ABD SOFT AND NONDISTENDED. PERMA CATH ON RIGHT FEMORAL. MIDLINE TO SAMIRA INTACT AND PATENT. PERIPHERAL IV 18 GAUGE ON RIGHT HAND INTACT AND PATENT. SAFETY PRECAUTIONS IN PLACE. CALL LIGHT WITHIN REACH.
--- NOTE | 2021-12-20 09:05 | NUR ---
PT TRANSPORTED TO CT SCAN.
--- NOTE | 2021-12-20 09:20 | NUR ---
PT RETURNED FROM CT SCAN.
--- NOTE | 2021-12-20 09:21 | NUR ---
HEMODIALYSIS NURSE AT BEDSIDE.
--- NOTE | 2021-12-20 09:40 | NUR ---
SEEN AND EXAMINED BY DR. LYON.
[2021-12-20] MEDS ORDERED: CALCIUM GLUC 1 GM/50 mL NS BAG 50 ML IV STA ×2 (09:48→09:58)
--- NOTE | 2021-12-20 10:06 | NUR ---
PATIENT HAS BEEN SCREENED AND CATEGORIZED HIGH NUTRITION RISK. PATIENT WILL BE SEEN WITHIN 1-2 DAYS OF ADMISSION. / LOB[facility] RD
--- NOTE | 2021-12-20 10:10 | NUR ---
SEEN AND EXAMINED BY DR. ELLIS. NEW ORDERS NOTED AND CARRIED OUT.
[2021-12-20] MEDS ORDERED: CALCIUM GLUCONATE 10% 1,000 MG in NACL 0.9% 50 ML IV SCH ×3 (10:30→12:30)
[2021-12-20] MEDS ORDERED: CRUSHER, PILL MC ONE (12:26)
[2021-12-20] MEDS: CALCIUM ACETATE 667 MG TAB PO SCH ×2 (12:26→16:41)
[2021-12-20] MEDS: methylPREDNISolone SS 125 MG/2 ML VIAL IVP SCH ×2 (12:27→21:52)
[2021-12-20] MEDS ORDERED: CALCIUM GLU 1 GM/100 mL NS BAG 100 ML IV SCH (12:30)
--- NOTE | 2021-12-20 12:30 | NUR ---
SEEN AND EXAMINED BY DR. MONTEIRO.
[2021-12-20] MEDS: MIDODRINE 5 MG TAB PO SCH ×2 (12:44→18:50)
--- NOTE | 2021-12-20 13:36 | NUR ---
HEMODIALYSIS DONE. VSS. 2L OUTPUT. WILL CONTINUE TO MONITOR.
--- NOTE | 2021-12-20 14:10 | NUR ---
FAMILY AT BEDSIDE.
--- NOTE | 2021-12-20 14:31 | NUR ---
12/20/21 RD INITIAL ASSESSMENT COMPLETED PLEASE REFER TO NUTRITION ASSESSMENT UNDER CARE ACTIVITY FOR ESTIMATED NUTRITIONAL NEEDS. 1. CONTINUE RENAL DIET TOLERATED -RECOMMENDED DOWNGRADING TEXTURE FROM REGULAR TO MECHANICAL SOFT 2. RECOMMEND NEPRO BID PER RD PROTOCOL 3. RD WILL MONITOR PT TOLERANCE ON FOOD TEXTURE AND PO INTAKE 4. RD TO FOLLOW-UP 3-5 DAYS, MODERATE RISK REVIEWED BY LOBITO [facility] RD
[2021-12-20] MEDS ORDERED: Z-GUARD PASTE TP ONE (16:04)
[2021-12-20] MEDS ORDERED: HYDRAGUARD CREAM TP ONE (16:04)
--- NOTE | 2021-12-20 16:45 | NUR ---
ENDORSED TO MAXI SORTO FOR CONTINUITY OF CARE.
--- NOTE | 2021-12-20 17:00 | NUR ---
RECEIVED BEDSIDE REPORT FROM ICU NURSE FOR CONTINUITY OF CARE. POC DISCUSSED. PT IS AOX4. SAMIRA MID LINE DOUBLE LUMEN WITH TKO NS, ALSO A RIGHT HAND 18G THAT IS PATENT AND INTACT. HEART SOUNDS REGULAR. SR ON HEART MONITOR. ON RA SATING 97%. BREATHING IS EVEN AND UNLABORED. NO SIGNS OF DISTRESS NOTED. ON RENAL DIET BREAKER OFF SOFT WITH NEPRO TID. PT IS STABLE.
[2021-12-21] VITALS: BP 109/61
[2021-12-21 04:00] VITALS: BP 90/47
[2021-12-21] MEDS: methylPREDNISolone SS 125 MG/2 ML VIAL IVP SCH ×3 (04:20→21:45)
[2021-12-21] MEDS: MIDODRINE 5 MG TAB PO SCH ×3 (06:08→18:44)
[2021-12-21 07:09] LABS: BASOPHILS % (AUTO) 0.1 % (0.0-2.0); HEMATOCRIT 32.4 % (36-52); HEMOGLOBIN 10.1 g/dL (12.0-18.0); LYMPHOCYTES # (AUTO) 0.2 K/uL (2.0-11.5); LYMPHOCYTES % (AUTO) 8.3 % (20.5-51.1); MEAN CORPUSCULAR HEMOGLOBIN 27 pg (27-31); MEAN CORPUSCULAR HGB CONC 31 g/dL (33-37); MEAN CORPUSCULAR VOLUME 85.9 fL (80-94); MONOCYTES # (AUTO) 0.1 K/uL (0.8-1.0); MONOCYTES % (AUTO) 2.3 % (1.7-9.3); NEUTROPHILS # (AUTO) 2.6 K/uL (1.8-7.7); NEUTROPHILS % (AUTO) 89.3 % (42.2-75.2); PLATELET COUNT (AUTO) 143 K/uL (140-450); RED BLOOD CELL COUNT(AUTO) 3.77 MIL/uL (4.20-6.10); RED CELL DISTRIBUTION WIDTH 18.1 % (11.6-13.7); WHITE BLOOD COUNT (AUTO) 2.9 K/uL (4.8-10.8)
[2021-12-21 07:17] LABS: ANION GAP 15.9 (8-16); CARBON DIOXIDE 22.3 mmol/L (21-32); POTASSIUM 5.2 mmol/L (3.5-5.1)
--- NOTE | 2021-12-21 07:20 | NUR ---
RECEIVED REPORT FROM STEREOPTICIAN NURSE FOR CONTINUITY OF CARE. PT IN BED SLEEPING AT THIS TIME. RESPIRATINS ARE EVEN AND UNLABORED ON ROOM AIR. NO SIGNS OF DISTRESS NOTED. PT IS ALERT AND ORIENTED X4, ABLE TO VERBALIZE NEEDS. PT IS ON CARDIAC MONITORING, SINUS RHYTHM ON MONITOR. ABD SOFT AND NONDISTENDED WITH BOWEL SOUNDS PRESENT. PERMA CATH ON RIGHT FEMORAL. MIDLINE TO SAMIRA INTACT AND PATENT. PERIPHERAL IV 18 GAUGE ON RIGHT HAND INTACT AND PATENT. PT IS CONTINENT OF BOWEL AND BLADDER. CALL LIGHT WITHIN REACH. ALL SAFETY PRECAUTIONS IN PLACE. WILL CONTINUE TO MONITOR.
[2021-12-21 08:00] VITALS: BP 104/61
--- NOTE | 2021-12-21 08:32 | NUR ---
LAB CALLED WITH CRITICAL VALUE, BUN 6.7 DR MONTEIRO MADE AWARE. NO NEW ORDERS. WILL CONTINUE TO MONITOR.
[2021-12-21 08:33] LABS: CREATININE 6.7 mg/dL (0.6-1.3)
[2021-12-21] MEDS: CALCIUM ACETATE 667 MG TAB PO SCH ×3 (08:54→17:58)
--- NOTE | 2021-12-21 08:59 | NUR ---
ADMINISTERED SCHDULED MEDICATIONS. EDUCATED PT ON MEDS ADMINISTERED. WILL CONTINUE TO MONITOR.
--- NOTE | 2021-12-21 11:16 | NUR ---
WOUND ASSESSMENT DONE TO THIS 41 Y/O PT AAX4. PT. ADMITTED WITH PRESSURE INJURY STAGE 3 TO LEFT BUTTOCK/LOWER SACRAL AREA. PER PT. HE HAD THE PI WHEN HE WAS AT PREVIOUS [facility] WITH NECK/THROAT SURGERY. PER. PT. HE WAS IN BED NOT MOVING FOR 5 DAYS. PT. ABLE TO TURN AND REPOSITION, AMBULATE TO BR. NECK OLD HEALED SCAR. POC DISCUSSED WITH PT. WITH WOUND CARE TEACHING AND INSTRUCTIONS. PT. VERBALIZES UNDERSTANDING. -LEFT BUTTOCK/LOWER SACRAL AREA PRESSURE INJURY STAGE3, 1X2X0.3CM WOUND BED 100% PINK AND MOIST, NO ODOR, MERLY WOUND SKIN INTACT. RECOMMENDATIONS: -CLEANSE LEFT BUTTOCK/LOWER SACRAL AREA WOUND WITH NS, PAT DRY, APPLY HYDROCOLLOID DRESSING 3X/WEEK ON MWF AND PRN IF SOILING -POSITIONING: TURN AND REPOSITION PATIENT Q 2H OR SOONER USE PILLOWS TO KEEP BONY PROMINENCES FROM DIRECT CONTACT WITH SURFACES USE REPOSITIONING WEDGES TO PROVIDE 30-DEGREE ANGLE FOR SIDE LYING POSITIONS OFFLOADING OR FOAM DRESSING TO ALL TUBING TO PREVENT MEDICAL DEVICES RELATED PRESSURE INJURY -RE-EVALUATING AND MANAGING INCONTINENCE KEEP SKIN DRY AND PROTECT FROM FRICTION -MANAGE FRICTION/SHEAR/MOBILITY KEEP HOB AT THE LOWEST LEVEL OF ELEVATION NO MORE THAN 30 DEGREE UNLESS OTHERWISE CONTRAINDICATED USE LIFT SHEET OR TRANSFER DEVICE TO MOVE PATIENT AND PREVENT LATERAL SHEER. PROTECT HEELS, ELBOWS BONY PROVENANCES WITH SKIN BERRIES OR FOAM DRESSING IF EXPOSED TO FRICTION OFFLOAD BILATERAL HEELS BY PLACING PILLOWS UNDER CALVES AT ALL TIMES, UNLESS OTHERWISE CONTRAINDICATED -PRESSURE REDISTRIBUTION SURFACE THERAPY MICHELE ISOFLEX ZACK MATTRESS -NUTRITION: PLEASE FOLLOW RD RECOMMENDATIONS AND OFFER NUTRITION SUPPLEMENTS IF ORDERED.
[2021-12-21 12:00] VITALS: BP 112/55
[2021-12-21] MEDS ORDERED: HYDRAGUARD CREAM TP SCH (12:00)
--- NOTE | 2021-12-21 12:01 | NUR ---
PT CALLED AND ASKED TO CHANGE BEDDING. CHANGED PT BEDDING. WILL CONTINUE TO MONITOR.
[2021-12-21 12:08] LABS: HEPATITIS A ANTIBODY IGM Negative (Negative); HEPATITIS B CORE AB TOTAL Negative (Negative); HEPATITIS B SURFACE ANTIBODY Reactive (.); HEPATITIS B SURFACE ANTIGEN Negative (Negative)
[2021-12-21] MEDS: CALCIUM GLUCONATE 10% 1,000 MG in NACL 0.9% 50 ML IV PRN (13:28)
--- NOTE | 2021-12-21 13:28 | NUR ---
SCHEDULED MEDICATIONS DUE GIVEN. WILL CONTINUE TO MONITOR.
--- NOTE | 2021-12-21 15:55 | NUR ---
PT CALLED AND ASKED IF HE WAS GOING TO BE GETTING DIALYSIS TODAY. INFORMED PT THAT PER DR, NO DIALYSIS TODAY, HE WILL RECEIVE DIALYSIS TOMORROW. PT VERBALIZED UNDERSTANDING. WILL CONTINUE TO MONITOR.
[2021-12-21 16:00] VITALS: BP 92/62
--- NOTE | 2021-12-21 17:48 | NUR ---
ADMINISTERED IVPB MEDICATION. NO S/S OF DISTRESS. CALL LIGHT IN REACH. ALL SAFETY MEASURES IN PLACE
--- NOTE | 2021-12-21 19:12 | NUR ---
ENDORSED PT TO PHYSICIST ASTROPHYSICS NURSE FOR CONTINUITY OF CARE. ALL NEEDS MET THROUGHOUT SHIFT. PT IS STABLE.
--- NOTE | 2021-12-21 19:18 | NUR ---
PER HEMODIALYSIS NURSE - HE WILL DO HEMODIALYSIS NOW INSTEAD OF [facility]DE[facility] . - PER DIALYSIS NURSE THAT IS THE ORDER BY DR. ELLIS - THE HEMODIALYSIS NURSE WILL WRITE THE ORDER ON PROGRESS NOTES.
[2021-12-21 20:00] VITALS: BP 90/50
--- NOTE | 2021-12-21 20:53 | NUR ---
HR DROP TO 40 TO 42 , BP - WILL REFER TO DR. ELLIS STAT . Addendum: 12/22/21 at 0651 by May Rodriguez RN PER DR. ELLIS - PRERNA KULKANRI NOW .
--- NOTE | 2021-12-21 23:00 | NUR ---
C/O SKIN ITCHINESS - WILL REFER TO DR. OROURKE . NO HIVES NOTED . Addendum: 12/22/21 at 0808 by May Rodriguez RN PT REFUSE ORAL BENADRYL - HE SAID THE ITCHINESS WILL GO AWAY NATURALLY . WILL CONT. TO MONITOR .
[2021-12-21] MEDS ORDERED: diphenhydrAMINE 50 MG CAP PO PRN (23:30)
[2021-12-22] VITALS: BP 105/60
--- NOTE | 2021-12-22 02:00 | NUR ---
SLEEPING , ON TELE MONITOR .
[2021-12-22 04:00] VITALS: BP 99/60
--- NOTE | 2021-12-22 04:10 | NUR ---
ROUNDS , , NO COMPLAIN MADE .
--- NOTE | 2021-12-22 06:00 | NUR ---
SLEEPING , BUT EASILY AWAKEABLE BY SOUNDS , NO COMPLAIN MADE .
[2021-12-22] MEDS: methylPREDNISolone SS 125 MG/2 ML VIAL IVP SCH ×2 (06:04→13:00)
[2021-12-22] MEDS: MIDODRINE 5 MG TAB PO SCH ×3 (06:58→19:32)
[2021-12-22 07:11] LABS: BASOPHILS % (AUTO) 0.4 % (0.0-2.0); EOSINOPHILS % (AUTO) 0.1 % (0.0-4.0); HEMATOCRIT 31.3 % (36-52); HEMOGLOBIN 9.8 g/dL (12.0-18.0); LYMPHOCYTES # (AUTO) 0.3 K/uL (2.0-11.5); LYMPHOCYTES % (AUTO) 5.4 % (20.5-51.1); MEAN CORPUSCULAR HEMOGLOBIN 27 pg (27-31); MEAN CORPUSCULAR HGB CONC 31 g/dL (33-37); MEAN CORPUSCULAR VOLUME 86.5 fL (80-94); MONOCYTES # (AUTO) 0.2 K/uL (0.8-1.0); MONOCYTES % (AUTO) 4.4 % (1.7-9.3); NEUTROPHILS # (AUTO) 4.6 K/uL (1.8-7.7); NEUTROPHILS % (AUTO) 89.7 % (42.2-75.2); PLATELET COUNT (AUTO) 158 K/uL (140-450); RED BLOOD CELL COUNT(AUTO) 3.62 MIL/uL (4.20-6.10); RED CELL DISTRIBUTION WIDTH 18.2 % (11.6-13.7); WHITE BLOOD COUNT (AUTO) 5.1 K/uL (4.8-10.8)
[2021-12-22 07:17] LABS: ANION GAP 17.8 (8-16); CARBON DIOXIDE 22.4 mmol/L (21-32); POTASSIUM 5.2 mmol/L (3.5-5.1)
--- NOTE | 2021-12-22 07:35 | NUR ---
ENDORSED - PT - STABLE .
--- NOTE | 2021-12-22 07:36 | NUR ---
RECEIVED REPORT FROM SPECIAL FORCES SENIOR SERGEANT NURSE FOR CONTINUITY OF CARE. PT IN BED SLEEPING AT THIS TIME. RESPIRATINS ARE EVEN AND UNLABORED ON ROOM AIR. NO SIGNS OF DISTRESS NOTED. PT IS ALERT AND ORIENTED X4, ABLE TO VERBALIZE NEEDS. PT IS ON CARDIAC MONITORING. PT IS ON RENAL MECHANICAL SOFT DIET, TOLERATING WELL. ABD SOFT, NONTENDER, NONDISTENDED WITH BOWEL SOUNDS PRESENT. PERMA CATH ON RIGHT FEMORAL. MIDLINE TO SAMIRA INTACT AND PATENT. NO CHANGE OF CONDITION PER SPECIAL FORCES SENIOR SERGEANT. PT IS CONTINENT OF BOWEL AND BLADDER. PT ABLE TO AMBULATE TO REST ROOM. CALL LIGHT WITHIN REACH. ALL SAFETY PRECAUTIONS IN PLACE. WILL CONTINUE TO MONITOR.
[2021-12-22 08:00] VITALS: BP 112/64
--- NOTE | 2021-12-22 08:00 | NUR ---
Patient's Plan of Care was discussed and reviewed with WATER PLANT MAINTENANCE MECHANIC: rupert perkins
[2021-12-22 08:33] LABS: CREATININE 6.7 mg/dL (0.6-1.3)
[2021-12-22] MEDS: CALCIUM ACETATE 667 MG TAB PO SCH ×3 (08:37→17:43)
--- NOTE | 2021-12-22 08:40 | NUR ---
ADMINISTERED ALL SCHEDULED MEDICATIONS. EDUCATED PT ON MEDS ADMINISTERED. PT VERBALIZED UNDERSTANDING. WILL CONTINUE TO MONITOR.
[2021-12-22] MEDS ORDERED: EPOETIN ALFA-EPBX 4,000 UNITS/ML VIAL IV SCH (09:00)
[2021-12-22] MEDS ORDERED: LORazepam 0.5 MG TAB PO PRN (11:00)
--- NOTE | 2021-12-22 11:00 | NUR ---
PT STATING HE FEELS VERY ANXIOUS. DR MONTEIRO MADE AWARE. NEW ORDERS PLACED FOR ATIVAN PRN. WILL CONTINUE TO MONITOR.
--- NOTE | 2021-12-22 11:31 | NUR ---
ADMINISTERED SCHEDULED MEDICATION WELL PRN ATIVAN. WILL CONTINUE TO MONITOR.
--- NOTE | 2021-12-22 11:47 | NUR ---
ASSESSED PT, CLEAR BILATERAL BREATH SOUNDS. SPO2 97% ON ROOM AIR. PT STATES PAIN IN NECK FROM SURGERY WILL MAKE NURSE AWARE.
[2021-12-22 12:00] VITALS: BP 121/79
[2021-12-22] MEDS: CALCIUM GLUCONATE 10% 1,000 MG in NACL 0.9% 50 ML IV PRN (12:12)
[2021-12-22] MEDS ORDERED: AMOX1TER12 PO (12:32)
--- NOTE | 2021-12-22 13:34 | NUR ---
PT REFUSED MEDICATION SOLU-MEDROL. STATES HE FEELS HE GETS IT TOO OFTEN. EDUCATED PT ON MEDICATION. PT STATES HE WILL "TAKE THE NEXT DOSE". WILL CONTINUE TO MONITOR.
--- NOTE | 2021-12-22 13:35 | NUR ---
DC PLANNING: THE PATIENT PRESENTED TO THE ED WITH C/O SOB DURING DIALYSIS. THE PATIENT IS S/P PARATHYROIDECTOMY AT [facility], ALSO HAS H/O HTN, ASTHMA AND CARDIAC DISORDERS. PATIENT LOW CALCIUM AT 6.0, HYPOTENSIVE AT 88/20. STARTED ON MIDODRINE PO, SOLUMEDROL TID, CALCIUM GLUCONATE IV, PHOSLO PO AND ROCEPHIN. ORDERS FOR CONSULTS WITH NEPHRO AND PARIMUTUEL CLERK. CM SPOKE WITH THE PATIENT AT BEDSIDE AND CONFIRMED HIS ADDRESS AND PHONE NUMBER. HE LIVES IN A SINGLE STORY HOUSE WITH HIS UNCLE AND MOTHER. STATES THAT HE USES A FWW TO AMBULATE AND IS S/P LEFT HIP REPLACEMENT. HE HAS HAD HOME HEALTH IN THE PAST FOR P.T. BUT WAS DC'D FROM SERVICE 5 MONTHS AGO AND CAN'T REMEMBER THE NAME OF THE AGENCY. HE WAS AT [facility] LAST WEEK AND HAD A PARATHYROIDECTOMY WHICH HE STATES IS IN PREPARATION FOR A RENAL TRANSPLANT. HE HAD A RENAL TRANSPLANT IN 2004 BUT IT REJECTED IN 2007. HE HAS DME OF A FWW AND WC, AND GOES TO DIALYSIS AT [facility] WITH JAZMINE ELLIS ON M,W,F,S. HE DRIVES HIMSELF TO DIALYSIS AND HAS A CHAIR TIME OF 0500. HE STATES THAT HE DOES NOT WANT TO FOLLOW UP AT [facility] AND THAT HE SEES DR ELLIS IN THE ROLE OF PCP. PATIENT TO DC HOME WHEN CLINICALLY STABLE, KARY WILL FOLLOW. Addendum: 12/22/21 at 1343 by Beatrice Jackson CM Amended: Links added.
[2021-12-22 16:00] VITALS: BP 120/80
--- NOTE | 2021-12-22 16:42 | NUR ---
INFORMED PT THAT DISCHARGE ORDER IS IN PLACE. PT STATED HIS FAMILY WILL BE ABLE TO PICK HIM UP AT 2000 TONIGHT. CHARGE NURSE MADE AWARE. WILL CONTINUE TO MONITOR.
--- NOTE | 2021-12-22 17:45 | NUR ---
FILLED OUT DISCHARGE PAPERWORK. WILL GO OVER PAPERWORK WITH PT. WILL CONTINUE TO MONITOR.
--- NOTE | 2021-12-22 19:20 | NUR ---
ENDORSED PT TO MOLDER FITTING NURSE FOR CONTINUITY OF CARE. WENT OVER DISCHARGE PAPERWORK WITH PT. PT SIGNED ALL PAPERWORK. PT FAMILY WILL DESIGN SUPERVISOR AT 1999. PT IS STABLE.
--- NOTE | 2021-12-22 19:21 | NUR ---
RECEIVED BEDSIDE REPORT FROM DAY RN. PT IS AAOX4. FRENCH SPEAKING. AMBULATORY WITH WALKER. HX ERSD R FEMORAL CATH AND SAMIRA MIDLINE LAST BAG OF ABX INFUSING. PT TO BE D/C TONIGHT FAMILY WILL JEWEL HOLE ROUGH OPENER PATIENT AT 1999. PAPERS SIGNED. R BUTTOCK SKIN TEAR. DX PNA WILL BE D/C HOME WITH PO ABX. PT VERBALIZE UNDERSTANDING. ALL QUESTIONS AND CONCERNS ADDRESSED. CALL LIGHT IS WITHIN REACH
--- NOTE | 2021-12-22 19:50 | NUR ---
SAMIRA MIDLINE REMOVED CATH INTACT. BLOOD WELL CONTROLLED. ALL NEEDS MET. PT RESTING COMFORTABLY IN BED WAITING FOR FAMILY.
--- NOTE | 2021-12-22 20:48 | NUR ---
PATIENT WAS WHEELED OUT WITH FAMILY. PT AAOX4 IN STABLE CONDITION ALL BELONGINGS AND D/C PAPERS WITH PT.
[2021-12-23] MEDS ORDERED: HYDROCOLLOID DRESSING TP SCH (13:00)
--- NOTE | 2021-12-26 11:50 | NUR ---
DC PLANNING SW CALL PATIENT'S PCP OFFICE AT TO MAKE A FOLLOW UP APPOINTMENT FOR PATIENT AFTER DC FROM [facility], SW SPOKE TO KINSEY WHO SCHEDULED PATIENT'S FOLLOW UP APPOINTMENT FOR 12/29/2021 AT 1:00PM WITH DR. JAYY BRODERICK SW THANKED HER FOR THE APPOINTMENT AND ENDED HE CALL. SW CALL PATIENT AT TO PROVIDE HIM WITH APPOINTMENT INFORMATION FOR HIS UPCOMING APPOINTMENT ON 12/29/2021 AT 1:00PM AT [address] [address], [address] DR. JAYY BRODERICK. PATIENT AGREED TO ATTEND AND THANKED THIS BOAT CAMP OPERATOR FOR THE INFORMATION BEFORE ENDING THE CALL.
== END 2021-12-22 20:45 | disposition home or self-care (01) | DRG 720 ==
LOC: MED 14:16 → MTU 17:11 → MIC 18:28 → MTU 12-20 17:00
PROVIDERS: ADMIT Student in an Organized Health Care Education/Training Program; ATTEND Student in an Organized Health Care Education/Training Program
PROC: 5A1D70Z Performance of Urinary Filtration, Intermittent, Less than 6 Hours Per Day (ICD-10-PCS; principal; 2021-12-20)
PROC: 05HY33Z Insertion of Infusion Device into Upper Vein, Percutaneous Approach (ICD-10-PCS; 2021-12-20)
PROC: B54NZZA Ultrasonography of Left Upper Extremity Veins, Guidance (ICD-10-PCS; 2021-12-20)
PROC: 5A1D70Z Performance of Urinary Filtration, Intermittent, Less than 6 Hours Per Day (ICD-10-PCS; 2021-12-21)
DX: A41.9 Sepsis, unspecified organism (principal); I13.2 Hypertensive heart and chronic kidney disease with heart failure and with stage 5 chronic kidney disease, or end stage renal disease; N18.6 End stage renal disease; J18.9 Pneumonia, unspecified organism; I95.89 Other hypotension; E83.51 Hypocalcemia; E11.22 Type 2 diabetes mellitus with diabetic chronic kidney disease; I50.9 Heart failure, unspecified; Z79.01 Long term (current) use of anticoagulants; R13.10 Dysphagia, unspecified; M54.9 Dorsalgia, unspecified; Z20.822 Contact with and (suspected) exposure to COVID-19; E78.5 Hyperlipidemia, unspecified; J45.909 Unspecified asthma, uncomplicated; Z99.2 Dependence on renal dialysis; Z79.899 Other long term (current) drug therapy
CPT/HCPCS: 36415; 70491; 71045; 71275; 80048; 80053; 80202; 82330; 83605; 83735; 83880; 84484; 85025; 85379; 86704; 86706; 86708; 86709; 86803; 87040; 87081; 87340; 93005; 96365; 96367; 96375; 97163-GP; 97530; 99285; J0610; J0696; J1200; J1885; J2270; J2930; J3370; J7030; J7060; Q5106; Q9967

== ENCOUNTER 2022-01-22 10:36 | Inpatient (IN) | payer OTHER ==
[~2022-01-22] VITALS: Ht 170.2 cm; Wt 73.0 kg
[~2022-01-22 10:36] MED LIST changes: -ACET-5636 PO; +AMOX1TER12 PO; +APIX5TAB PO; -CEPH250C16 PO; +CINA90TA PO; +DYN250 PO; +FERR1TAB42 PO; +METH100S16 PO; +PRO5 PO
[2022-01-22 10:45] VITALS: BP 81/50
--- NOTE | 2022-01-22 10:45 | NUR ---
PT W/C ASSISTED TO BED 03.
[2022-01-22] MEDS ORDERED: ACETAMINOPHEN EXTRA STRENGTH 500 MG TAB PO ONE (10:50)
[2022-01-22] MEDS ORDERED: NACL 0.9% 1,000 ML IV ONE (11:05)
[2022-01-22] MEDS ORDERED: PIPERACILLIN/TAZOBACTAM 3.375 GM in DEXTROSE 5% 50 ML IV ONE (11:05)
--- NOTE | 2022-01-22 11:24 | NUR ---
SHE SPECIMEN COLLECTED WALKED TO LAB, HANDED TO CPT. SAW
--- NOTE | 2022-01-22 11:29 | NUR ---
LAB AT BEDSIDE
[2022-01-22] MEDS ORDERED: PIPERACILLIN/TAZOBACTAM 3.375 GM VIAL IV ONE (11:51)
[2022-01-22 11:56] LABS: BASOPHILS % (AUTO) 0.3 % (0.0-2.0); EOSINOPHILS % (AUTO) 0.1 % (0.0-4.0); HEMATOCRIT 39.3 % (36-52); HEMOGLOBIN 12.4 g/dL (12.0-18.0); LYMPHOCYTES # (AUTO) 0.5 K/uL (2.0-11.5); LYMPHOCYTES % (AUTO) 6.4 % (20.5-51.1); MEAN CORPUSCULAR HEMOGLOBIN 27 pg (27-31); MEAN CORPUSCULAR HGB CONC 32 g/dL (33-37); MEAN CORPUSCULAR VOLUME 85.5 fL (80-94); MONOCYTES # (AUTO) 0.6 K/uL (0.8-1.0); MONOCYTES % (AUTO) 6.6 % (1.7-9.3); NEUTROPHILS # (AUTO) 7.3 K/uL (1.8-7.7); NEUTROPHILS % (AUTO) 86.6 % (42.2-75.2); PLATELET COUNT (AUTO) 117 K/uL (140-450); RED BLOOD CELL COUNT(AUTO) 4.59 MIL/uL (4.20-6.10); RED CELL DISTRIBUTION WIDTH 16.9 % (11.6-13.7); WHITE BLOOD COUNT (AUTO) 8.4 K/uL (4.8-10.8)
[2022-01-22 12:20] LABS: ALBUMIN 3.5 g/dL (3.4-5.0); ANION GAP 19.4 (8-16); CARBON DIOXIDE 21.8 mmol/L (21-32); POTASSIUM 4.2 mmol/L (3.5-5.1); TOTAL BILIRUBIN 1.3 mg/dL (0.0-1.0)
[2022-01-22 12:24] LABS: CREATININE 6.7 mg/dL (0.6-1.3)
--- NOTE | 2022-01-22 12:24 | NUR ---
PER PT INFORMED HE IS ANURIC
[2022-01-22] MEDS ORDERED: IBUPROFEN 800 MG TAB PO ONE (12:30)
--- NOTE | 2022-01-22 12:30 | NUR ---
PT SITTING UP ON BED, DR SANDY AT BEDSIDE & INFORMED OF TEMP
[2022-01-22] MEDS ORDERED: CALCIUM GLUCONATE 10% 1000 MG/10 ML VIAL IVP ONE (12:45)
[2022-01-22] MEDS ORDERED: VANCOMYCIN 1,000 MG in DEXTROSE 5% 250 ML IV ONE (13:15)
[2022-01-22] MEDS ORDERED: MORPHINE SULFATE 2 MG/ML SYR IVP PRN (13:45)
[2022-01-22] MEDS ORDERED: ACETAMINOPHEN 325 MG TAB PO PRN (13:45)
[2022-01-22] MEDS ORDERED: VANCOMYCIN PER PHARMACY MC PRN (13:45)
[2022-01-22] MEDS ORDERED: CALCIUM GLUC 1 GM/50 mL NS BAG 0 ML IV ONE (14:26)
[2022-01-22] MEDS ORDERED: VANCOMYCIN 1,000 MG VIAL ONE (14:27)
--- NOTE | 2022-01-22 15:10 | NUR ---
PT ENDORSED TO NURSE BERMUDEZ
--- NOTE | 2022-01-22 16:14 | NUR ---
LACTIC ACID IS 3.3, PAGED DR. SOLIS AND INFORMED HIM OF CRITICAL LABS. RECEIVED NEW ORDERS FOR REPEAT LACTIC ACID IN 4 HOURS. WILL CARRY OUT ORDERS.
[2022-01-22] MEDS ORDERED: NACL 0.9% 500 ML IV SCH (16:20)
--- NOTE | 2022-01-22 16:46 | NUR ---
pt hypotensive in 60s dr medel made aware with orders to upgrade to icu place central line and infuse levophed per order
[2022-01-22] MEDS ORDERED: NOREPINEPHRINE 4 MG/4 ML VIAL IV ONE ×2 (16:49→23:09)
[2022-01-22] MEDS: NOREPINEPHRINE 8 MG in DEXTROSE 5% 250 ML IV PRN (16:57)
--- NOTE | 2022-01-22 17:33 | NUR ---
DR MUSTAFA TO PLACE CENTRAL LINE
--- NOTE | 2022-01-22 18:36 | NUR ---
PAGED DR ELLIS PER DR EVANS REQUEST TO SEE IF ABLE TO USE DIALYSIS CATHETER TO RIGHT GROIN FOR LEVOPHED. ALSO PT CO SOB, REQUESTING DIALYSIS.
--- NOTE | 2022-01-22 19:10 | NUR ---
SPOKE TO DR ELLIS [facility] TO PLACE ANOTHER CENTRAL LINE FOR LEVOPHED. [facility] HE WILL CALL DIALYSIS FOR [facility] DIALYSIS FOR PT
--- NOTE | 2022-01-22 19:25 | NUR ---
RT AT BEDSIDE ASSESSING PT
[2022-01-22] MEDS ORDERED: KETAMINE 10 MG/ML UD SYR **ER IVP ONE (19:40)
--- NOTE | 2022-01-22 19:41 | NUR ---
PT PLACED ON BIPAP
--- NOTE | 2022-01-22 19:41 | NUR ---
PT SIGNED CONSENT FOR DIALYSIS AND CENTRAL LINE
[2022-01-22 19:49] VITALS: BP 98/66
--- NOTE | 2022-01-22 19:49 | NUR ---
PT PLACED ON NIV FOR INCREASED WOB PT PLACED ON BIPAP PLUGGED INTO RED OUTLET WITH ALARMS ON AND AUDIBLE WILL CONTINUE TO MONITOR
--- NOTE | 2022-01-22 20:01 | NUR ---
Dr. Jacome examining patient.
[2022-01-22] MEDS: ONDANSETRON 4 MG/2 ML VIAL IVP PRN (20:13)
--- NOTE | 2022-01-22 20:13 | NUR ---
RT DRAWING ABG
[2022-01-22 20:25] VITALS: BP 103/63
--- NOTE | 2022-01-22 20:49 | NUR ---
PT MOVED TO ER BED 1
--- NOTE | 2022-01-22 20:53 | NUR ---
Dr. Jacome examining patient.
--- NOTE | 2022-01-22 20:55 | NUR ---
PT MOVED FROM ED10 TO ED1 BIPAP PLUGGED INTO RED OUTLET WITH ALARMS ON AND AUDIBLE WILL CONTIUE TO MONITOR
[2022-01-22] MEDS ORDERED: fentaNYL citrate 0.05 MG/ML VIAL ONE (20:57)
--- NOTE | 2022-01-22 20:58 | NUR ---
TRANSFER OF CARE TRANSFERED TO DECEMBER, RN
--- NOTE | 2022-01-22 21:06 | NUR ---
Given Fentanyl 50 mcg IV push , verbal order by Dr. Jacome before start procedure -place central line.
--- NOTE | 2022-01-22 21:10 | NUR ---
Start procedure - place central line by Dr. Jacome.
--- NOTE | 2022-01-22 21:21 | NUR ---
Given Fentanyl 50 mcg IV push , verbal order Dr. Jacome- BP 5034 -OK by Dr. Jacome. Addendum: 01/22/22 at 2325 by [email or web address] Given Fentanyl 50 mcg IV push , verbal order Dr. Jacome- BP 34 -OK by Dr. Jacome.
--- NOTE | 2022-01-22 21:29 | NUR ---
Continue IV Levophed 19 mcg/min-BP 90/37
--- NOTE | 2022-01-22 21:29 | NUR ---
CAD ENGINEER AT BEDSIDE
--- NOTE | 2022-01-22 22:03 | NUR ---
BP 95/50-Continue Levophed drip, Hold IV Zosyn - Patient on going dialysis.
[2022-01-22] MEDS: PIPERACILLIN/TAZOBACTAM 2.25 GM in DEXTROSE 5% 50 ML IV SCH (22:06)
--- NOTE | 2022-01-22 22:46 | NUR ---
BP 95/53 , continue Levophed drip 19 mcg/min. Patient still on going dialysis. Patient appears to be resting comfortably in bed.
--- NOTE | 2022-01-22 23:31 | NUR ---
BP 82/34 Increase Levophed drip to 21 mcg/min.
--- NOTE | 2022-01-22 23:47 | NUR ---
BP 79/38 Increase Levophed drip to 24 mcg/min.
[2022-01-23] VITALS (19 sets, daily range): BP systolic 96–144; BP diastolic 34–74
--- NOTE | 2022-01-23 00:06 | NUR ---
BP 78/63 Increase drip of Levophed to 27 mcg/min.
--- NOTE | 2022-01-23 00:11 | NUR ---
Finish Dialysis - Per order removal fluide 2 L
--- NOTE | 2022-01-23 00:38 | NUR ---
Moved patient to hospital bed.
--- NOTE | 2022-01-23 00:40 | NUR ---
PT REMOVED MASK AND IS REFUISING TO UTILIZE BIPAP AT THIS TIME PT WAS ENCOURAGED BUT CONTINUES TO REFUSE BIPAP PT PLACED ON 2LNC PT WAS INFORMED I WILL CONTIBNHUE Addendum: 01/23/22 at 0042 by RAO PT REMOVED MASK AND IS REFUISING TO UTILIZE BIPAP AT THIS TIME PT WAS ENCOURAGED BUT CONTINUES TO REFUSE BIPAP PT PLACED ON 2LNC AND WAS INFORMED I WILL CONTINUE TO MONITOR AND I CAN REPLACE BIPAP ON HIM IF NEEDED BIPAP REMAINS @ BEDSIDE ON
--- NOTE | 2022-01-23 01:37 | NUR ---
BP 116/84-Decrease drip of Levophed to 24 mcg/min
[2022-01-23] MEDS: PIPERACILLIN/TAZOBACTAM 2.25 GM in DEXTROSE 5% 50 ML IV SCH ×3 (02:10→20:03)
--- NOTE | 2022-01-23 02:48 | NUR ---
BP 103/66 -Decrease Levophed drip to 21 mcg/min
--- NOTE | 2022-01-23 03:17 | NUR ---
Provided bedside commode as request.
--- NOTE | 2022-01-23 04:18 | NUR ---
BP 93/57- Continue drip Levophed 21 mcg/min.
--- NOTE | 2022-01-23 04:22 | NUR ---
Patient vomiting x 2 episode. Given Zofran 4 mg IV as prn protocol.
[2022-01-23] MEDS: ONDANSETRON 4 MG/2 ML VIAL IVP PRN ×2 (04:27→10:02)
--- NOTE | 2022-01-23 04:42 | NUR ---
BP 114/58- Decrease Levophed 19 mcg/min
--- NOTE | 2022-01-23 05:55 | NUR ---
Patient appears to be resting comfortably in bed.
--- NOTE | 2022-01-23 06:16 | NUR ---
Continue drip Levophed 19 mcg/min.
[2022-01-23] MEDS ORDERED: NOREPINEPHRINE 4 MG/4 ML VIAL IV ONE (06:26)
--- NOTE | 2022-01-23 06:53 | NUR ---
BP 92/53-Continue drip Levophed 19 mcg/min.
--- NOTE | 2022-01-23 07:05 | NUR ---
PATIENT HAS BEEN SCREENED AND CATEGORIZED HIGH NUTRITION RISK. PATIENT WILL BE SEEN WITHIN 1-2 DAYS OF ADMISSION. 01/23/22-01/24/22 CADEN CAMARA MS, RDN
--- NOTE | 2022-01-23 07:08 | NUR ---
Provided bedside commode as request.
--- NOTE | 2022-01-23 07:15 | NUR ---
REPORT RECEIVED FROM DECEMBER MAXI
--- NOTE | 2022-01-23 07:29 | NUR ---
Patient will be admitted to care of DR SOLIS. Admited to ICU . Will go to room ICU 1. Belongings list completed. Report to JED GERMAN.
--- NOTE | 2022-01-23 07:30 | NUR ---
PT ON BED SIDE COMMONDE. PT AWARE OF TRANSFER TO ICU. ASSIST PT BACK TO BED. WILL TRANSFER PT IN ICU BED.
--- NOTE | 2022-01-23 07:45 | NUR ---
RECEIVED BEDSIDE REPORT FROM MARY BERNAL RN FOR CONTINUITY OF CARE.
--- NOTE | 2022-01-23 08:00 | NUR ---
PT A&OX4, PRODUCTIVE COUGH PRESENT. ROOM AIR. LABORED BREATHING. SPO2 98%. SR ON MONITOR. AV FISTULA NOTED ON LEFT ARM. RIGHT FEMORAL DIALYSIS CATHETER INTACT. CONTINENT OF BOWEL. ANURIC. COMMODE AT BEDSIDE. MILD WEAKNESS. SKIN INTACT. ASPIRATION AND FALL PRECAUTIONS IN PLACE. CALL LIGHT WITHIN REACH.
--- NOTE | 2022-01-23 08:00 | NUR ---
RECEIVED REPORT FROM ED RN. PATIENT RECEIVING LEVOPHED AT 14MCG/MIN.
--- NOTE | 2022-01-23 08:30 | NUR ---
PATIENT RECEIVED AWAKE AND ALERT. MOVES ALL EXTREMITIES. DENIES COMPLAINTS OF PAIN. HEART SOUNDS REGULAR. MONITOR SR WITHOUT ECTOPY. PULSES PALPABLE BILATERALLY. NO EDEMA NOTED. RIGHT FEMORAL TLC IN PLACE. LEVOPHED INFUSING AT 14MCG/MIN. OTHER PORTS FLUSHED WITHOUT DIFFICULTY. ANTERIOR/LATERAL BREATH SOUNDS CLEAR BILATERALLY. O2 AT 3L/NC. SAO2 97%. ABDOMEN ROUND, FIRM, DISTENDED. MIDLINE ABDOMINAL HERNIA NOTED. SOFT/NONTENDER. PATIENT DENIES PAIN.
[2022-01-23 08:40] LABS: BASOPHILS % (AUTO) 0.2 % (0.0-2.0); EOSINOPHILS % (AUTO) 0.3 % (0.0-4.0); HEMATOCRIT 41.4 % (36-52); LYMPHOCYTES # (AUTO) 0.5 K/uL (2.0-11.5); LYMPHOCYTES % (AUTO) 4.4 % (20.5-51.1); MEAN CORPUSCULAR HEMOGLOBIN 27 pg (27-31); MEAN CORPUSCULAR HGB CONC 31 g/dL (33-37); MEAN CORPUSCULAR VOLUME 85.2 fL (80-94); MONOCYTES # (AUTO) 1.6 K/uL (0.8-1.0); NEUTROPHILS # (AUTO) 10.1 K/uL (1.8-7.7); NEUTROPHILS % (AUTO) 82.1 % (42.2-75.2); PLATELET COUNT (AUTO) 116 K/uL (140-450); RED BLOOD CELL COUNT(AUTO) 4.86 MIL/uL (4.20-6.10); RED CELL DISTRIBUTION WIDTH 17.3 % (11.6-13.7); WHITE BLOOD COUNT (AUTO) 12.3 K/uL (4.8-10.8)
[2022-01-23 08:49] LABS: ALBUMIN 3.5 g/dL (3.4-5.0); ANION GAP 18.1 (8-16); CARBON DIOXIDE 25.6 mmol/L (21-32); MAGNESIUM 1.7 mg/dL (1.8-2.4); TOTAL BILIRUBIN 2.2 mg/dL (0.0-1.0)
[2022-01-23 08:58] LABS: POTASSIUM 6.7 mmol/L (3.5-5.1)
[2022-01-23 08:59] LABS: CREATININE 6.2 mg/dL (0.6-1.3)
--- NOTE | 2022-01-23 09:00 | NUR ---
DR. NOLASCO HERE TO SEE PATIENT. ORDERS RECEIVED.
[2022-01-23] MEDS ORDERED: POTASSIUM CHLORIDE 10 MEQ TABER PO PRN (09:55)
[2022-01-23] MEDS ORDERED: MAGNESIUM OXIDE 400 MG TAB PO PRN (09:55)
[2022-01-23] MEDS ORDERED: ZOLPIDEM 5 MG TAB PO PRN (09:55)
[2022-01-23] MEDS ORDERED: MAG SULF 2000 MG/WATER PREMIX 50 ML IV PRN (09:55)
[2022-01-23] MEDS ORDERED: IPRATROPIUM 0.02% 0.5 MG/2.5 ML NEBU INH PRN (09:55)
[2022-01-23] MEDS ORDERED: MORPHINE SULFATE 2 MG/ML SYR IVP PRN (09:55)
[2022-01-23] MEDS ORDERED: HYDROcodone/APAP 5/325 MG 1 TAB TAB PO PRN ×2 (09:55)
[2022-01-23] MEDS ORDERED: SODIUM PHOSPHATE 118 ML ENEM RC PRN (09:55)
[2022-01-23] MEDS ORDERED: DOCUSATE SODIUM 250 MG GELCAP PO PRN (09:55)
[2022-01-23] MEDS ORDERED: bisacodyL 10 MG SUPP RC PRN (09:55)
[2022-01-23] MEDS ORDERED: guaiFENesin DM 200/20 MG-10 ML 10 ML UDC PO PRN (09:55)
[2022-01-23] MEDS ORDERED: ACETAMINOPHEN 325 MG TAB PO PRN (09:55)
[2022-01-23] MEDS ORDERED: NACL 0.9% 500 ML IV SCH (09:55)
[2022-01-23] MEDS ORDERED: ALBUTEROL 0.083% 2.5 MG/3 ML NEBU INH PRN (09:55)
[2022-01-23] MEDS ORDERED: CLONIDINE HYDROCHLORIDE 0.1 MG TAB PO PRN (09:55)
[2022-01-23] MEDS ORDERED: ALUMINUM HYD/MAG/SIMETHICONE 30 ML UDC PO PRN (09:55)
[2022-01-23] MEDS ORDERED: ACETAMINOPHEN 650 MG SUPP RC PRN (09:55)
[2022-01-23] MEDS ORDERED: diphenhydrAMINE 50 MG/ML VIAL IVP PRN (09:55)
--- NOTE | 2022-01-23 10:00 | NUR ---
DR LYON EXAMINED PT AT BEDSIDE, ORDERS RECEIVED.
[2022-01-23] MEDS: METOCLOPRAMIDE 10 MG/2 ML INJ VIAL IVP PRN (10:30)
--- NOTE | 2022-01-23 10:45 | NUR ---
PT RESTING COMFORTABLY IN BED. DENIES PAIN.
--- NOTE | 2022-01-23 10:45 | NUR ---
DR. MARX HERE TO SEE PATIENT. ORDERS RECEIVED. NOTIFIED DR. NOLASCO AND DR. MARX OF NOTED HERNIA.
--- NOTE | 2022-01-23 11:19 | NUR ---
01/23/22 FNS REFERRAL RECIEVED FOR N/V/D > 3 DAYS. RDN WILL F/U PER NUTRITION CARE POLICY. CADEN CAMARA MS, RDN
--- NOTE | 2022-01-23 11:45 | NUR ---
DR ELLIS EXAMINED PT AT BEDSIDE, ORDERS RECEIVED.
[2022-01-23] MEDS: NACL 0.9% 1,000 ML IV SCH ×2 (12:10→21:45)
--- NOTE | 2022-01-23 13:30 | NUR ---
DR SOLIS EXAMINED PT AT BEDSIDE, ORDERS RECEIVED.
[2022-01-23] MEDS: HYDROCORTISONE NA SUCC 100 MG/2 ML VIAL IV SCH ×2 (13:35→20:03)
[2022-01-23] MEDS: MIDODRINE 5 MG TAB PO SCH ×2 (13:35→17:23)
--- NOTE | 2022-01-23 14:50 | NUR ---
HD NURSE AT BEDSIDE, STARTED DIALYSIS.
[2022-01-23] MEDS ORDERED: ONDANSETRON 4 MG/2 ML VIAL IVP PRN (16:00)
[2022-01-23] MEDS: NOREPINEPHRINE 8 MG in DEXTROSE 5% 250 ML IV PRN (16:50)
[2022-01-23] MEDS: CALCIUM ACETATE 667 MG TAB PO SCH (17:23)
[2022-01-23] MEDS ORDERED: VANCOMYCIN 1,000 MG in DEXTROSE 5% 250 ML IV SCH (18:00)
--- NOTE | 2022-01-23 18:15 | NUR ---
HD RN REMOVED 3 L OF FLUID. PT TOLERATED WELL.
--- NOTE | 2022-01-23 19:15 | NUR ---
ENDORSED BEDSIDE REPORT TO NIGHT RN KISSES FOR CONTINUITY OF CARE.
--- NOTE | 2022-01-23 19:15 | NUR ---
RECEIVED BEDSIDE REPORT FROM DAY SHIFT NURSE. PATIENT IS AWAKE, ALERT, AND COOPERATIVE. RESPIRATION EVEN UNLABORED ON 4L NC O2. SATING 95% NO DISTRESS NOTED. SKIN IS WARM AND DRY. IV PATENT AND INTACT. LEVOPHED RUNNING AT 12MCG/MIN AND NS @ 100ML/HR. RIGHT FEMORAL HD CATH NOTED DRESSING DRY AND INTACT. PLAN OF CARE DISCUSSED. ALL SAFETY MEASURE IN PLACE. CALL LIGHT WITHIN REACH. WILL CONTINUE TO MONITOR.
--- NOTE | 2022-01-23 19:45 | NUR ---
PROCEDURE BEEN VERIFIED. BEFORE STARTING PATIENT STATED THAT HE HAS A HISTORY OF AV GRAFT ON THE RIGHT UPPER ARM AND LEFT FOREARM. PICC LINE NURSE AT BEDSIDE AND AWARE. LEFT MIDLINE WAS INSERT BY PICC LINE NURSE.
--- NOTE | 2022-01-23 19:46 | NUR ---
PATIENT COMPLAINED OF GENERALIZED PAIN 7/10 PRN PAIN MEDS GIVEN PER ORDER. WILL CONTINUE TO MONITOR
--- NOTE | 2022-01-23 19:52 | NUR ---
PER PICC LINE NURSE, LEFT MIDLINE OKAY TO USE.
--- NOTE | 2022-01-23 20:00 | NUR ---
MOM AT BEDSIDE
--- NOTE | 2022-01-23 20:57 | NUR ---
FOUND PATIENT EATING A SANDWICH THAT WAS BROUGHT BY HIS MOM, EDUCATED PATIENT THAT HIS DIET FOR NOW IS CLEAR LIQUID, PATIENT VERBALIZES UNDERSTANDING. WILL CONTINUE TO MONITOR
--- NOTE | 2022-01-23 22:13 | NUR ---
PT PLACED ON NIV AVAPS 500 +6 f16 P10-18 50% FOR WOB AND DESATURATIONS BIPAP ALARMS ON AND AUDIBLE BIPAP PLUGGED INTO RED OUTLET RN IS AWARE WILL CONTINUE TO MONITOR FAMILY WAS AT BEDSIDE EARLIER AND INFORMED ME PT HAS SLEEP APNEA
--- NOTE | 2022-01-23 22:15 | NUR ---
RT PLACED PATIENT ON CPAP, WILL CONTINUE TO MONITOR.
--- NOTE | 2022-01-23 22:35 | NUR ---
PATIENT IS ANXIOUS, RESTLESS, AND UNCOMFORTABLE FROM CPAP MACHINE, PRN ATIVAN GIVEN PER ORDER. WILL CONTINUE TO MONITOR
[2022-01-23] MEDS: LORazepam 2 MG/ML VIAL IVP PRN (22:36)
--- NOTE | 2022-01-23 22:44 | NUR ---
FIO2 TITRATED TO 28% AND TOLERATING WELL SPO2 98% 5 MIN POST TITRATION
[2022-01-24] VITALS (29 sets, daily range): BP systolic 59–148; BP diastolic 37–123
--- NOTE | 2022-01-24 00:30 | NUR ---
PT SLEEPING NO DISTRESS NOTED
[2022-01-24] MEDS: NACL 0.9% 1,000 ML IV SCH (01:25)
[2022-01-24] MEDS ORDERED: NOREPINEPHRINE 4 MG/4 ML VIAL IV ONE (02:27)
[2022-01-24] MEDS: NOREPINEPHRINE 8 MG in DEXTROSE 5% 250 ML IV PRN (02:31)
--- NOTE | 2022-01-24 04:00 | NUR ---
PT REFUSED TO BE CLEAN RIGHT NOW. WILL ASK AGAIN LATER.
[2022-01-24] MEDS: PIPERACILLIN/TAZOBACTAM 2.25 GM in DEXTROSE 5% 50 ML IV SCH ×3 (05:48→21:00)
[2022-01-24] MEDS: HYDROCORTISONE NA SUCC 100 MG/2 ML VIAL IV SCH ×3 (05:48→21:00)
[2022-01-24 05:58] LABS: ANION GAP 17.6 (8-16); CARBON DIOXIDE 21.8 mmol/L (21-32); POTASSIUM 5.4 mmol/L (3.5-5.1)
[2022-01-24 06:25] LABS: BASOPHILS % (AUTO) 0.4 % (0.0-2.0); HEMOGLOBIN 12.1 g/dL (12.0-18.0); LYMPHOCYTES # (AUTO) 0.6 K/uL (2.0-11.5); MEAN CORPUSCULAR HEMOGLOBIN 27 pg (27-31); MEAN CORPUSCULAR HGB CONC 32 g/dL (33-37); MEAN CORPUSCULAR VOLUME 84.3 fL (80-94); MONOCYTES # (AUTO) 0.7 K/uL (0.8-1.0); MONOCYTES % (AUTO) 6.3 % (1.7-9.3); NEUTROPHILS # (AUTO) 10.1 K/uL (1.8-7.7); NEUTROPHILS % (AUTO) 88.3 % (42.2-75.2); PLATELET COUNT (AUTO) 112 K/uL (140-450); RED BLOOD CELL COUNT(AUTO) 4.51 MIL/uL (4.20-6.10); RED CELL DISTRIBUTION WIDTH 17.6 % (11.6-13.7); WHITE BLOOD COUNT (AUTO) 11.4 K/uL (4.8-10.8)
[2022-01-24 06:30] LABS: CREATININE 4.9 mg/dL (0.6-1.3)
--- NOTE | 2022-01-24 06:35 | NUR ---
THERESA QUINTERO FOR CRITICAL LAB VALUE, AWAITING FOR CALL BACK
--- NOTE | 2022-01-24 07:28 | NUR ---
RECEIVED BEDSIDE REPORT FROM DORITA HANSEN RN FOR CONTINUITY OF CARE. PT AAOX4, ASLEEP, EYES CLOSED, PERRLA. ON 3L NC. SR ON MONITOR. CONTINENT OF BOWEL. COMMODE AT BEDSIDE. ANURIC. CLAUDIA MIDLINE PATENT INTACT, INFUSING LEVOPHED AT 4 MCG/MIN. RIGHT FEMORAL DIALYSIS CATHETER INTACT. OK FOR BP ON R SIDE. NO BP/BLOOD DRAW ON L SIDE. MILD WEAKNESS. SKIN INTACT. SAFETY PRECAUTIONS MET. CALL LIGHT WITHIN REACH. CONTACT PRECAUTIONS FOR MRSA OF NARE. INITIAL ASSESSMENT COMPLETE, WILL CONTINUE TO CLOSELY MONITOR.
--- NOTE | 2022-01-24 07:28 | NUR ---
ENDORSED PATIENT TO DAY SHIFT NURSE FOR CONTINUITY OF CARE.
--- NOTE | 2022-01-24 08:20 | NUR ---
SEEN AND EXAMINED BY DR LLANOS. ORDERS RECEIVED.
[2022-01-24] MEDS: CALCIUM ACETATE 667 MG TAB PO SCH ×2 (08:31→16:48)
[2022-01-24] MEDS: MUPIROCIN CA NASAL 2% 1GM TUBE NS SCH ×2 (08:31→21:00)
[2022-01-24] MEDS: MIDODRINE 5 MG TAB PO SCH ×3 (08:31→16:48)
--- NOTE | 2022-01-24 08:50 | NUR ---
SEEN AND EXAMINED BY DR LYON. ORDERED RENAL SOLID DIET.
--- NOTE | 2022-01-24 09:00 | NUR ---
PT FINISHED CL LIQ BREAKFAST, APPROX 600 ML INTAKE
--- NOTE | 2022-01-24 10:00 | NUR ---
PT USES BEDSIDE COMMODE, XL SOFT/LIQUID BROWN BM NOTED, APPROX 300 ML.
--- NOTE | 2022-01-24 11:23 | NUR ---
DC PLANNIN YRS OLD MALE PATIENT WAS ADMITTED FROM HOME WITH A DX OF SEPSIS UNKNOWN SOURCE. PATIENT HAS A HX OF DM, HTN, ESRD ON HEMODIALYSIS AT [facility] WITH DR ELLIS. CXR SHOWED LOW LUNG VOLUME. RAPID COVID TEST NEGATIVE. ON BIPAP FIO2 28%, SATING 98% . ADMINISTERED IVF, IV ABX ZOSYN AND ON LEVOPHED RIP. CONSULTED WITH NEPHRO DR ELLIS SEEN PATIENT AND ORDERED HEMODIALYSIS. DC PLAN TO GO HOME WHEN STABLE. CM TO FOLLOW Addendum: 01/25/22 at 1219 by Melissa Lord RN DC PLANNING: PATIENT IS OFF LEVOPHED , ON DIALYSIS, VITALS STABLE. NEPHRO AND PULMO FOLLOWING. DC PLAN TO GO HOME AND CONTINUE VANCOMYCIN WITH DIALYSIS. CM TO FOLLOW
--- NOTE | 2022-01-24 11:26 | NUR ---
01/24/22 RD INITIAL ASSESSMENT COMPLETED PLEASE REFER TO NUTRITION ASSESSMENT UNDER CARE ACTIVITY FOR ESTIMATED NUTRITIONAL NEEDS. 1. CONTINUE RENAL DIET TOLERATED -IF PO INTAKE IS < 75%, RECOMMEND NEPRO BID PER RD PROTOCOL 2. MONITOR FLUID INTAKE AND NUTRITION-RELATED LAB VALUES 3. RD TO FOLLOW-UP 3-5 DAYS, MODERATE RISK LOBITO FAM, RD
--- NOTE | 2022-01-24 13:00 | NUR ---
PT ASLEEP. RESPIRATIONS EVEN AND UNLABORED.
--- NOTE | 2022-01-24 14:40 | NUR ---
OFF LEVOPHED. DR ELLIS AT BEDSIDE. PER , PT BASELINE BP IN THE 80S.
--- NOTE | 2022-01-24 14:45 | NUR ---
SEEN AND EXAMINED BY DR CALEB LOWE. HE ORDERED REGULAR DIET, NO FLUID RESTRICTIONS.
--- NOTE | 2022-01-24 15:20 | NUR ---
EARLIER, PT DAUGHTER, FAYE, PROVIDED PHONE NUMBER FOR [facility] [phone]. I CALLED THE NUMBER AND SPOKE WITH SOLOMON. SHE HELPED ME LEAVE A MESSAGE FOR PTS [facility] [place] NEUROLOGIST, MYRNA PONCE. PROVIDED ICU CALL BACK NUMBER. SHE SAID SHE WILL SEND THE MESSAGE FOR DR PONCE TO CALL OUR ICU. Addendum: 01/24/22 at 1958 by Rose Monroe RN wrong pt please disregard
--- NOTE | 2022-01-24 17:00 | NUR ---
DC PLANNING PATIENT IS A 41 YEAR OLD MALE ADMITTED IN THE [facility]/ED ON 01/22/2022 DUE TO COMPLAINTS OF FEVER ASSOCIATED WITH SHORTNESS OF BREATH AND WEAKNESS OVER THE PAST 2 DAYS. PATIENT HAS HX. OF END STAGE RENAL DISEASE ON DIALYSIS. SW MEET WITH PATIENT AT BEDSIDE TO DISCUSS AND GATHER PATIENT INFORMATION, PATIENT WAS AWAKE AND ALERT ABLE TO PROVIDE HIS OWN INFORMATION. PATIENT REPORTED HAVING GOOD FAMILY SUPPORT. LIVES AT HOME WITH HIS MOTHER SISTER AND UNCLE IN [place] [facility]. PER PATIENT HE HAS A.D ALREADY WITH HIS BROTHER NICK RODRIGUEZ HIS EMERGENCY CONTACT AND MEDICAL DECISION MAKER. PATIENT REPORTED NOT HAVING ISSUES WITH HIS MEDICATIONS AND GETTING ALL HIS MEDICATIONS FROM THE [facility] IN [place]. PATIENT REPORTED HAVING O2, A WHEELCHAIR AND A WALKER HIS DME AT HOME. PATIENT ALSO REPORTED GETTING HIS DIALYSIS FROM [facility] [place]. WITH DR. ELLIS HIS SENIOR QUALITY TECHNICIAN. PATIENT STATED THAT WHEN HE IS DISCHARGE HE WILL BE GOING HOME WITH THE ASSISTANCE OF HIS BROTHER NICK WHO WILL PICK HIM UP FROM [facility]. GILDARDO DISCUSSED WITH PATIENT THE IMPORTANCE OF MAKING A FOLLOW UP APPOINTMENT WITH PCP AFTER HIS DC FROM [facility] AND OFFERED PATIENT TO MAKE THE APPOINTMENT. PATIENT DECLINED REPORTING THAT HE WILL MAKE HIS OWN APPOINTMENT. SW ENDED THE MEETING AND WILL FOLLOW UP NEEDED.
--- NOTE | 2022-01-24 17:30 | NUR ---
PT USES BEDSIDE COMMMarguerite YOUNG NOTED.
--- NOTE | 2022-01-24 19:15 | NUR ---
ENDORSED BEDSIDE REPORT TO FLAVIA HANSEN RN FOR CONTINUITY OF CARE.
[2022-01-25] VITALS (20 sets, daily range): BP systolic 78–142; BP diastolic 38–91
[2022-01-25] MEDS: PIPERACILLIN/TAZOBACTAM 2.25 GM in DEXTROSE 5% 50 ML IV SCH ×3 (05:00→20:37)
[2022-01-25] MEDS: HYDROCORTISONE NA SUCC 100 MG/2 ML VIAL IV SCH ×3 (05:00→20:36)
[2022-01-25 05:39] LABS: ANION GAP 17.3 (8-16); CARBON DIOXIDE 22.5 mmol/L (21-32); POTASSIUM 4.8 mmol/L (3.5-5.1)
[2022-01-25 05:44] LABS: CREATININE 6.2 mg/dL (0.6-1.3)
[2022-01-25 06:33] LABS: BASOPHILS % (AUTO) 0.1 % (0.0-2.0); HEMATOCRIT 36.3 % (36-52); HEMOGLOBIN 11.6 g/dL (12.0-18.0); LYMPHOCYTES # (AUTO) 0.6 K/uL (2.0-11.5); LYMPHOCYTES % (AUTO) 7.6 % (20.5-51.1); MEAN CORPUSCULAR HEMOGLOBIN 27 pg (27-31); MEAN CORPUSCULAR HGB CONC 32 g/dL (33-37); MEAN CORPUSCULAR VOLUME 83.9 fL (80-94); MONOCYTES # (AUTO) 0.3 K/uL (0.8-1.0); MONOCYTES % (AUTO) 4.4 % (1.7-9.3); NEUTROPHILS # (AUTO) 6.9 K/uL (1.8-7.7); NEUTROPHILS % (AUTO) 87.9 % (42.2-75.2); PLATELET COUNT (AUTO) 141 K/uL (140-450); RED BLOOD CELL COUNT(AUTO) 4.33 MIL/uL (4.20-6.10); RED CELL DISTRIBUTION WIDTH 17.1 % (11.6-13.7); WHITE BLOOD COUNT (AUTO) 7.8 K/uL (4.8-10.8)
--- NOTE | 2022-01-25 07:35 | NUR ---
Received report on pt. Pt AAOx4, states no pain or distress at this time, on 3L O2 via NC. IV site intact, patent, no infiltration noted. Midline in place left UA. Pt with BUE nonfunctional AV shunt. Noted dialysis access on right femoral. Provided pt with breakfast tray. No other complaints at this time.
--- NOTE | 2022-01-25 07:40 | NUR ---
Dialysis being done at bedside.
[2022-01-25] MEDS: MUPIROCIN CA NASAL 2% 1GM TUBE NS SCH ×2 (08:17→20:37)
[2022-01-25] MEDS: MIDODRINE 5 MG TAB PO SCH ×3 (08:18→16:51)
[2022-01-25] MEDS: CALCIUM ACETATE 667 MG TAB PO SCH ×2 (08:18→16:50)
--- NOTE | 2022-01-25 11:40 | NUR ---
Dialysis complete, 3000 mL out by rail switchman.
--- NOTE | 2022-01-25 13:16 | NUR ---
Page out to Dr. Ponce, spoke with exchange.
--- NOTE | 2022-01-25 13:20 | NUR ---
Dr. Ponce returned call, informed about pt's blood culture. No new orders at this time.
--- NOTE | 2022-01-25 16:00 | NUR ---
Pt requesting to use commode for BM. Pt able with steady transfer to commode, able to perform self care.
[2022-01-25] MEDS: METOCLOPRAMIDE 10 MG/2 ML INJ VIAL IVP PRN (17:33)
--- NOTE | 2022-01-25 17:46 | NUR ---
Pt c/o nausea, administered PRN reglan. Pt also noted to be bradycardic HR 40-43.
--- NOTE | 2022-01-25 18:20 | NUR ---
Dr. Lynne paged for consult and returned call. Informed Dr. Lynne about pt's current condition and Dr. Baker's orders. New orders made.
[2022-01-25] MEDS ORDERED: NOREPINEPHRINE 8 MG in DEXTROSE 5% 250 ML IV PRN (18:30)
--- NOTE | 2022-01-25 18:48 | NUR ---
Pt states relief with abdominal discomfort from reglan PRN, informed pt about low HR in 30s. Pt states "feeling better after reglan."
--- NOTE | 2022-01-25 19:10 | NUR ---
Endorsed plan of care to RN.
--- NOTE | 2022-01-25 19:30 | NUR ---
REPORT GIVEN BY DAY SHIFT MAXI HUMMEL. PT. WIDE AWAKE, AOX4. INITIAL ASSESSMENT WITH LUNGS SOUNDS COURSE, ON ROOM AIR. NO S/S OF SOB. PT. HAS AN INTERMITTENT COUGH EPISODE WITH CLEAR THICK SPUTUM. HR IS SINUS RHYTHM ON CRYSTAL EVALUATOR. IV SITE TO LEFT UPPER ARM MIDLINE AND RIGHT WRIST 18G FLUSHED AND CAPPED. PT. BILATERAL ARMS WITH AV SHUNT, NOT USE. HD CATHETER TO LEFT FEMORAL AND DONE DIALYSIS TODAY 01/25/22 WITH 2.6l OUTPUT. PT. HAS A GOOD APPETITE ON REGULAR DIET. PT. ABLE TO DO ADL INDEPENDENTLY WITH MINIMAL ASSIST. PROVIDED SAFE AND QUIET ENVIRONMENT AND WILL CONT. TO MONITOR.
--- NOTE | 2022-01-25 22:39 | NUR ---
PT. AWAKE AND WATCHING TV, DENIES ANY PAIN.
[2022-01-26] VITALS (7 sets, daily range): BP systolic 97–117; BP diastolic 52–65
--- NOTE | 2022-01-26 01:45 | NUR ---
PT REFUSED TO USE BiPAP AT [facility]. BENEFIT AND RISK EXPLAINED TO PT.
[2022-01-26] MEDS: PIPERACILLIN/TAZOBACTAM 2.25 GM in DEXTROSE 5% 50 ML IV SCH ×3 (05:28→22:03)
[2022-01-26] MEDS: HYDROCORTISONE NA SUCC 100 MG/2 ML VIAL IV SCH ×3 (05:28→22:04)
--- NOTE | 2022-01-26 07:53 | NUR ---
ENDORSED PT. TO DAY SHIFT MAXI RIDDLE FOR CONTINUITY OF CARE.
--- NOTE | 2022-01-26 08:00 | NUR ---
RECEIVED PT FROM CAR FRAMER MARIOLA ALEJANDRO IS AOX4, ON RA, IV LINE NOTED ON THE RIGHT WRIST G. 22 ON SALINE LOCK, PT HAS A RIGHT FEMORAL CATHETER IN PLACE FOR DIALYSIS ACCESS, BILATERAL AV SHUNTS IN PLACE BUT NON-FUNCTIONING, PT IS AMBULATING USING WALKER, NO SIGN OF DISTRESS NOTED AND WILL CONTINUE TO MONITOR PT.
[2022-01-26 08:38] LABS: BASOPHILS % (AUTO) 0.2 % (0.0-2.0); HEMATOCRIT 39.4 % (36-52); HEMOGLOBIN 12.4 g/dL (12.0-18.0); LYMPHOCYTES # (AUTO) 1.1 K/uL (2.0-11.5); LYMPHOCYTES % (AUTO) 13.3 % (20.5-51.1); MEAN CORPUSCULAR HEMOGLOBIN 27 pg (27-31); MEAN CORPUSCULAR HGB CONC 31 g/dL (33-37); MEAN CORPUSCULAR VOLUME 84.7 fL (80-94); MONOCYTES # (AUTO) 0.5 K/uL (0.8-1.0); MONOCYTES % (AUTO) 6.1 % (1.7-9.3); NEUTROPHILS # (AUTO) 6.3 K/uL (1.8-7.7); NEUTROPHILS % (AUTO) 80.4 % (42.2-75.2); PLATELET COUNT (AUTO) 158 K/uL (140-450); RED BLOOD CELL COUNT(AUTO) 4.65 MIL/uL (4.20-6.10); RED CELL DISTRIBUTION WIDTH 17.3 % (11.6-13.7); WHITE BLOOD COUNT (AUTO) 7.9 K/uL (4.8-10.8)
[2022-01-26] MEDS ORDERED: ROCURONIUM 50 MG/5 ML VIAL IV ONE (08:59)
[2022-01-26 09:12] LABS: ALBUMIN 3.5 g/dL (3.4-5.0); ANION GAP 16.3 (8-16); CARBON DIOXIDE 24.1 mmol/L (21-32); POTASSIUM 4.4 mmol/L (3.5-5.1); TOTAL BILIRUBIN 0.6 mg/dL (0.0-1.0)
[2022-01-26] MEDS: CALCIUM ACETATE 667 MG TAB PO SCH ×2 (09:26→18:18)
[2022-01-26] MEDS: MUPIROCIN CA NASAL 2% 1GM TUBE NS SCH ×2 (09:26→22:02)
[2022-01-26 09:34] LABS: CREATININE 5.5 mg/dL (0.6-1.3)
[2022-01-26] MEDS: MIDODRINE 5 MG TAB PO SCH ×3 (09:35→18:18)
[2022-01-26] MEDS: LORazepam 2 MG/ML VIAL IVP PRN (09:44)
--- NOTE | 2022-01-26 09:56 | NUR ---
ECHOCARDIOGRAM IS BEING DONE TO PT NOW.
[2022-01-26 11:20] LABS: MAGNESIUM 2.6 mg/dL (1.8-2.4); PHOSPHORUS 2.2 mg/dL (2.5-4.9)
[2022-01-26] MEDS ORDERED: VANCOMYCIN 500 MG in DEXTROSE 5% 100 ML IV SCH (13:00)
--- NOTE | 2022-01-26 13:38 | NUR ---
PT WAS GIVEN IVPB ZOSYN NOW.
[2022-01-26] MEDS ORDERED: HYDROCORTISONE NA SUCC 100 MG/2 ML VIAL ONE ×2 (13:48→21:31)
--- NOTE | 2022-01-26 14:16 | NUR ---
PT WAS GIVEN VANCOMYCIN IVPB NOW.
--- NOTE | 2022-01-26 14:21 | NUR ---
DR. COTTON IS TALKING TO PT NOW IN ROOM.
--- NOTE | 2022-01-26 19:40 | NUR ---
ENDORSED PT TO NIGHT RN FOR CONTINUITY OF CARE, PT IS STABLE AT THIS TIME.
--- NOTE | 2022-01-26 19:55 | NUR ---
RECEIVED REPORT FROM OUTGOING RN. PT SITTING UP IN BED, TALKING TO FAMILY AT BED SIDE. NO S/SX OF DISTRESS OR PAIN. REQUESTED PT TO INFORM NURSE WHEN HE HAS BOWEL MOVEMENT TO ENABLE ME COLLECT SAMPLE FOR HIS OCCULT BLOOD TEST. PT HAS A DOUBLE LUMEN MIDLINE @ SAMIRA INTACT. B/L UPPER EXTREMITIES WITH OLD SCARS FROM SHUNT NOT FUNCTIONING. HEMODIALYSIS ACCESS @R FEMUR.
[2022-01-26] MEDS ORDERED: COMMUNICATION ORDER MC PRN (22:30)
--- NOTE | 2022-01-26 22:30 | NUR ---
PT GIVEN SCHEDULED ZOSYN IVPB
--- NOTE | 2022-01-27 01:40 | NUR ---
COLLECTED SAMPLE FOR OCCULT BLOOD, FORWARDED TO LAB FOR TESTING.
[2022-01-27] MEDS ORDERED: HYDROCORTISONE NA SUCC 100 MG/2 ML VIAL ONE ×2 (04:58→13:52)
[2022-01-27] MEDS: HYDROCORTISONE NA SUCC 100 MG/2 ML VIAL IV SCH ×2 (05:16→14:00)
[2022-01-27 05:35] VITALS: BP 114/73
[2022-01-27 08:00] VITALS: BP 105/68
--- NOTE | 2022-01-27 08:00 | NUR ---
RECEIVED REPORT FROM HEAVY TRUCK MECHANIC FOR CONTINUITY OF CARE. PATIENT ALERT AWAKE ORIENTED X4, NOT IN DISTRESS NOTED. WITH SAMIRA MIDLINE, NO SIGN OF INFECTION NOTED. ON MONITOR SHOWS SB. FOR DIALYSIS TODAY. NEEDS ATTENDED. WILL CONTINUE TO MONITOR.
[2022-01-27] MEDS: CALCIUM ACETATE 667 MG TAB PO SCH ×2 (08:22→17:12)
[2022-01-27] MEDS: MIDODRINE 5 MG TAB PO SCH ×3 (08:22→17:12)
[2022-01-27] MEDS: MUPIROCIN CA NASAL 2% 1GM TUBE NS SCH (08:22)
--- NOTE | 2022-01-27 08:40 | NUR ---
DIALYSIS STARTED, CRITICAL LABS RELAYED TO DR. ELLIS. AND MADE AWARE. DR. ELLIS SPOKE TO DIALYSIS NURSE. WILL CONTINUE TO MONITOR.
[2022-01-27 09:14] LABS: BASOPHILS # (AUTO) 0.1 K/uL (0.00-0.22); BASOPHILS % (AUTO) 1.4 % (0.0-2.0); HEMATOCRIT 37.3 % (36-52); HEMOGLOBIN 11.7 g/dL (12.0-18.0); LYMPHOCYTES # (AUTO) 0.7 K/uL (2.0-11.5); LYMPHOCYTES % (AUTO) 15.3 % (20.5-51.1); MEAN CORPUSCULAR HEMOGLOBIN 26 pg (27-31); MEAN CORPUSCULAR HGB CONC 31 g/dL (33-37); MEAN CORPUSCULAR VOLUME 84.6 fL (80-94); MONOCYTES # (AUTO) 0.2 K/uL (0.8-1.0); MONOCYTES % (AUTO) 3.5 % (1.7-9.3); NEUTROPHILS # (AUTO) 3.6 K/uL (1.8-7.7); NEUTROPHILS % (AUTO) 79.8 % (42.2-75.2); PLATELET COUNT (AUTO) 128 K/uL (140-450); RED BLOOD CELL COUNT(AUTO) 4.41 MIL/uL (4.20-6.10); WHITE BLOOD COUNT (AUTO) 4.6 K/uL (4.8-10.8)
[2022-01-27 09:25] LABS: MAGNESIUM 2.2 mg/dL (1.8-2.4); PHOSPHORUS 2.3 mg/dL (2.5-4.9)
[2022-01-27 09:28] LABS: ALBUMIN 3.1 g/dL (3.4-5.0); ANION GAP 20.1 (8-16); CARBON DIOXIDE 20.3 mmol/L (21-32); POTASSIUM 4.4 mmol/L (3.5-5.1); TOTAL BILIRUBIN 0.6 mg/dL (0.0-1.0)
[2022-01-27 09:37] LABS: CREATININE 6.9 mg/dL (0.6-1.3)
[2022-01-27] MEDS ORDERED: DAPTOMYCIN IV SCH (11:00)
[2022-01-27] MEDS ORDERED: NACL 0.9% IV SCH (11:00)
[2022-01-27 12:00] VITALS: BP 90/49
--- NOTE | 2022-01-27 12:52 | NUR ---
DIALYSIS DONE WITH 3L OUTPUT. PATIENT RESTING IN BED. WILL CONTINUE TO MONITOR.
[2022-01-27 16:00] VITALS: BP 107/65
--- NOTE | 2022-01-27 17:05 | NUR ---
PATIENT RESTING IN BED, DENIES PAIN. NEEDS ATTENDED. WILL CONTINUE TO MONITOR.
--- NOTE | 2022-01-27 18:14 | NUR ---
PATIENT CALLED AND HE SAID THAT HE WANTS TO GO HOME AND HE WILL SIGN AMA, I TOLD HIM I WILL PAGE THE DOCTOR. PER DR. LLANOS IF HE CANNOT GO HOME TODAY AND HE WILL DISCUSS THE PLAN TOMORROW INSTEAD, ALTHOUGH I SHOW HIM WHAT DR. LLANOS SAID, HE STILL WANTS TO GO AMA. I CALLED THE BROTHER THE PERSON TO NOTIFY AND HE SAID HE WILL TALK TO HIM. WILL CONTINUE TO MONITOR.
--- NOTE | 2022-01-27 19:20 | NUR ---
PATIENT LEFT AMA IN SPITE OF EXPLAINING THE RISK AND CONSEQUENCES. SAMIRA MIDLINE REMOVED. IN STABLE CONDITION.
== END 2022-01-27 19:20 | disposition left against medical advice (07) | DRG 721 ==
LOC: MED 10:36 → MTU 13:46 → MIC 01-23 06:21 → MTU 01-26 08:10
PROVIDERS: ADMIT Hospitalist; ATTEND Hospitalist
PROC: B54BZZA Ultrasonography of Right Lower Extremity Veins, Guidance (ICD-10-PCS; 2022-01-22)
PROC: 05HY33Z Insertion of Infusion Device into Upper Vein, Percutaneous Approach (ICD-10-PCS; principal; 2022-01-23)
PROC: 5A1D70Z Performance of Urinary Filtration, Intermittent, Less than 6 Hours Per Day (ICD-10-PCS; 2022-01-23)
PROC: B54NZZA Ultrasonography of Left Upper Extremity Veins, Guidance (ICD-10-PCS; 2022-01-23)
PROC: 5A1D70Z Performance of Urinary Filtration, Intermittent, Less than 6 Hours Per Day (ICD-10-PCS; 2022-01-25)
DX: T80.211A Bloodstream infection due to central venous catheter, initial encounter (principal); A41.02 Sepsis due to Methicillin resistant Staphylococcus aureus; R65.21 Severe sepsis with septic shock; E46 Unspecified protein-calorie malnutrition; E87.2 Acidosis; J15.9 Unspecified bacterial pneumonia; N18.6 End stage renal disease; E83.51 Hypocalcemia; Z20.822 Contact with and (suspected) exposure to COVID-19; Y84.8 Other medical procedures as the cause of abnormal reaction of the patient, or of later complication, without mention of misadventure at the time of the procedure; Z79.899 Other long term (current) drug therapy; Z90.49 Acquired absence of other specified parts of digestive tract; Z99.2 Dependence on renal dialysis; Z68.25 Body mass index [BMI] 25.0-25.9, adult; Y92.89 Other specified places as the place of occurrence of the external cause; I95.9 Hypotension, unspecified
CPT/HCPCS: 36415; 36556; 71045; 80048; 80053; 80202; 82272; 82803; 83605; 83735; 83880; 84100; 84132; 84484; 85025; 87040; 87081; 87186; 93005; 94660; 96361; 96365; 96366; 96367; 96375; 99291; J0610; J0878; J1644; J1720; J2060; J2270; J2405; J2543; J2765; J3010; J3370; J3490; J7030; J7060; Q0092

== ENCOUNTER 2022-04-27 18:02 | Inpatient (IN) | payer OTHER ==
[~2022-04-27] VITALS: Ht 165.1 cm; Wt 75.3 kg
[2022-04-27] MEDS: NOREPINEPHRINE 4 MG in DEXTROSE 5% 250 ML IV ONE ×2 (03:15→22:01)
[2022-04-27] MEDS ORDERED: ACETAMINOPHEN EXTRA STRENGTH 500 MG TAB PO ONE (18:05)
[2022-04-27 18:15] VITALS: BP 120/62
--- NOTE | 2022-04-27 18:34 | NUR ---
PT WC ASSISTED TO BED 1
--- NOTE | 2022-04-27 18:57 | NUR ---
42 y/o male biba from home, c/o fever 103.0, body aches, n&v, sob and weakness after having first dialysis yesterday. pt a&ox4, states he is unable to ambulate, uses heavy assistance while moving. lung sounds clear, heart sounds even and tachy at 112. pt denies anyone sick at home with the same s/s. pmh: renal disease, copd, htn, hip sx nka med: tylenol
[2022-04-27] MEDS ORDERED: fentaNYL citrate 0.05 MG/ML VIAL IVP ONE ×2 (19:00→22:10)
[2022-04-27] MEDS ORDERED: NACL 0.9% 500 ML IV ONE (19:00)
[2022-04-27] MEDS ORDERED: VANCOMYCIN 1,000 MG in DEXTROSE 5% 250 ML IV ONE (19:00)
[2022-04-27] MEDS ORDERED: PIPERACILLIN/TAZOBACTAM 3.375 GM in DEXTROSE 5% 50 ML IV ONE (19:00)
[2022-04-27] MEDS ORDERED: NACL 0.9% 1,000 ML IV ONE ×2 (19:15→19:20)
[2022-04-27 19:30] LABS: EOSINOPHILS % (AUTO) 0.8 % (0.0-4.0); HEMATOCRIT 43.5 % (36-52); HEMOGLOBIN 13.9 g/dL (12.0-18.0); LYMPHOCYTES # (AUTO) 0.7 K/uL (2.0-11.5); LYMPHOCYTES % (AUTO) 10.7 % (20.5-51.1); MEAN CORPUSCULAR HEMOGLOBIN 27 pg (27-31); MEAN CORPUSCULAR HGB CONC 32 g/dL (33-37); MEAN CORPUSCULAR VOLUME 84.8 fL (80-94); MONOCYTES # (AUTO) 2.5 K/uL (0.8-1.0); MONOCYTES % (AUTO) 39.7 % (1.7-9.3); NEUTROPHILS # (AUTO) 3.1 K/uL (1.8-7.7); NEUTROPHILS % (AUTO) 48.8 % (42.2-75.2); PLATELET COUNT (AUTO) 125 K/uL (140-450); RED BLOOD CELL COUNT(AUTO) 5.13 MIL/uL (4.20-6.10); WHITE BLOOD COUNT (AUTO) 6.4 K/uL (4.8-10.8)
--- NOTE | 2022-04-27 19:30 | NUR ---
AWAKE WITH C/O PAIN. PT IS CONCERNED REGARDING FLUID BOLUS. REASSURANCE GIVEN. SPOKE WITH DR GILMAN.
[2022-04-27] MEDS ORDERED: PIPERACILLIN/TAZOBACTAM 3.375 GM VIAL IV ONE (19:42)
[2022-04-27] MEDS ORDERED: VANCOMYCIN 1,000 MG VIAL ONE (19:43)
[2022-04-27 19:51] LABS: ALBUMIN 3.9 g/dL (3.4-5.0); ANION GAP 19.7 (8-16); CARBON DIOXIDE 24.5 mmol/L (21-32); POTASSIUM 5.2 mmol/L (3.5-5.1); TOTAL BILIRUBIN 1.3 mg/dL (0.0-1.0)
[2022-04-27 20:03] LABS: CREATININE 7.8 mg/dL (0.6-1.3)
[2022-04-27] MEDS ORDERED: NOREPINEPHRINE 4 MG/4 ML VIAL IV ONE (22:00)
--- NOTE | 2022-04-27 22:00 | NUR ---
RESTING MORE COMFORTABLY AT PRESENT. BP REMAINS LABILE
[2022-04-27] MEDS ORDERED: VANCOMYCIN PER PHARMACY MC PRN (23:50)
[2022-04-28] VITALS (25 sets, daily range): BP systolic 68–173; BP diastolic 29–95
--- NOTE | 2022-04-28 | NUR ---
ASSISTED UP TO BSC FOR BM. BACK TO BED AND MADE COMFORTABLE
--- NOTE | 2022-04-28 01:40 | NUR ---
ADMITTED THIS 42 YEAR OLD MALE PATIENT FROM ER PER [facility] WITH THE ADMITTING DIAGNOSIS OF SEPSIS. ASSISTED PATIENT IN ICU 5; HOOKED TO SECURITY NURSE SCOPE SHOWS ON SINUS RHYTHM HR 85/MIN NO ARRHYTHMIAS SEEN. PATIENT IS AWAKE, ALERT, AND ORIENTED, FOLLOWS COMMANDS. WITH IV CANNULA G 18 ON LEFT ARM; PATENT AND INTACT. WITH HD ACCESS ON ON RIGHT FEMORAL; INTACT. ABDOMEN IS SOFT, ACTIVE BOWEL SOUNDS.
--- NOTE | 2022-04-28 03:15 | NUR ---
STARTING TO BECOME HYPOTENSIVE, LEVOPHED DRIP STARTED AT 4 MCG/MIN PER PROTOCOL
[2022-04-28] MEDS ORDERED: HYDROcodone/APAP 5/325 MG 1 TAB TAB PO SCH (03:25)
[2022-04-28] MEDS ORDERED: MORPHINE SULFATE 2 MG/ML SYR IVP SCH (03:25)
[2022-04-28] MEDS ORDERED: HYDROcodone/APAP 5/325 MG 1 TAB TAB ONE (03:30)
--- NOTE | 2022-04-28 03:35 | NUR ---
STILL COMPLAINING OF LEFT SHOULDER PAIN AND HEADACHE; REFERRED TO DR. LAMBERT WITH ORDER TO GIVE NORCO TAB 5 MG PO AND IF NOTE EFFECTIVE CAN GIVE MORPHINE 2 MG IV; CARRIED OUT.
[2022-04-28] MEDS ORDERED: PIPERACILLIN/TAZOBACTAM 2.25 GM VIAL IV ONE (04:08)
[2022-04-28] MEDS: PIPERACILLIN/TAZOBACTAM 2.25 GM in DEXTROSE 5% 50 ML IV SCH ×3 (04:28→22:26)
[2022-04-28] MEDS ORDERED: PIPERACILLIN/TAZOBACTAM 2.25 GM in DEXTROSE 5% 50 ML IV SCH (05:00)
[2022-04-28] MEDS ORDERED: METOCLOPRAMIDE 10 MG/2 ML INJ VIAL IVP SCH (05:50)
[2022-04-28] MEDS ORDERED: MORPHINE SULFATE 2 MG/ML SYR ONE (05:56)
[2022-04-28] MEDS ORDERED: METOCLOPRAMIDE 10 MG/2 ML INJ VIAL ONE (05:57)
[2022-04-28 06:13] LABS: BASOPHILS % (AUTO) 0.2 % (0.0-2.0); EOSINOPHILS % (AUTO) 0.1 % (0.0-4.0); HEMATOCRIT 42.2 % (36-52); HEMOGLOBIN 13.8 g/dL (12.0-18.0); LYMPHOCYTES # (AUTO) 0.7 K/uL (2.0-11.5); LYMPHOCYTES % (AUTO) 6.8 % (20.5-51.1); MEAN CORPUSCULAR HEMOGLOBIN 29 pg (27-31); MEAN CORPUSCULAR HGB CONC 33 g/dL (33-37); MEAN CORPUSCULAR VOLUME 87.9 fL (80-94); MONOCYTES # (AUTO) 1.2 K/uL (0.8-1.0); MONOCYTES % (AUTO) 11.2 % (1.7-9.3); NEUTROPHILS % (AUTO) 81.7 % (42.2-75.2); PLATELET COUNT (AUTO) 100 K/uL (140-450); RED CELL DISTRIBUTION WIDTH 16.9 % (11.6-13.7)
[2022-04-28 06:33] LABS: ANION GAP 18.8 (8-16); CARBON DIOXIDE 24.7 mmol/L (21-32); POTASSIUM 4.5 mmol/L (3.5-5.1)
--- NOTE | 2022-04-28 06:40 | NUR ---
ADMINISTERED MORPHINE AND REGLAN PER ORDERS DUE TO PT COMPLAINT OF LEFT SHOULDER PAIN. PT STATES HIS PAIN STARTED DAYS AGO WHEN GETTING OUT OF BED AND LIFTED HIS SELF UP. CONTINUES ON ROOM AIR WITH NO LABORED BREATHING NOTED. WILL CONTINUE TO CLOSELY MONITOR AND FOLLOW POC.
[2022-04-28 06:53] LABS: CREATININE 8.3 mg/dL (0.6-1.3)
[2022-04-28] MEDS ORDERED: NOREPINEPHRINE 4 MG/4 ML VIAL IV ONE (06:56)
--- NOTE | 2022-04-28 07:00 | NUR ---
LEVOPHED DRIP INCREASED TO 26 MCG/MIN, PT IN NO APPARENT ACUTE DISTRESS AT THIS TIME. PT STATES MORPHINE HELPED WITH HIS PAIN AND IS CURRENTLY FEELING BETTER. DR. LAMBERT NOTIFIED OF CRITICAL CREATININE LAB VALUE OF 8.3. ORDERED TO GET A HOLD OF MEDICINAL PLANT PICKER.
[2022-04-28] MEDS ORDERED: LORazepam 2 MG/ML VIAL IVP PRN (07:30)
[2022-04-28] MEDS ORDERED: DOCUSATE SODIUM 100 MG GELCAP PO PRN (07:30)
[2022-04-28] MEDS ORDERED: ONDANSETRON 4 MG/2 ML VIAL IVP PRN (07:30)
[2022-04-28] MEDS ORDERED: MAG SULF 2000 MG/WATER PREMIX 50 ML IV PRN (07:30)
[2022-04-28] MEDS ORDERED: POTASSIUM CHLORIDE 10 MEQ TABER PO PRN (07:30)
[2022-04-28] MEDS ORDERED: ACETAMINOPHEN 325 MG TAB PO PRN (07:30)
--- NOTE | 2022-04-28 07:30 | NUR ---
BEDSIDE REPORT GIVEN TO DAY SHIFT NURSE FOR CONTINUATION OF CARE, PT IN NO ACUTE DISTRESS.
[2022-04-28] MEDS ORDERED: ZOLPIDEM 5 MG TAB PO PRN (07:40)
--- NOTE | 2022-04-28 08:44 | NUR ---
PATIENT HAS BEEN SCREENED AND CATEGORIZED MODERATE NUTRITION RISK. PATIENT WILL BE SEEN WITHIN 3-5 DAYS OF ADMISSION. 04/29/22-05/03/[address]VIEW[address] BY WIN ROD [address] Addendum: 04/28/22 at [address] PATIENT HAS BEEN SCREENED AND CATEGORIZED HIGH NUTRITION RISK. PATIENT WILL BE SEEN WITHIN 3-5 DAYS OF ADMISSION. 04/29/22-04/30/[address] R[address]
[2022-04-28] MEDS: MIDODRINE 5 MG TAB PO SCH ×3 (08:50→17:33)
[2022-04-28] MEDS: NOREPINEPHRINE 4 MG in DEXTROSE 5% 250 ML IV SCH ×6 (09:14→23:59)
[2022-04-28] MEDS ORDERED: PHENYLEPHRINE 20 MG in NACL 0.9% 250 ML IV PRN (09:25)
--- NOTE | 2022-04-28 10:30 | NUR ---
DR. OSMAN NOTED LEVOPHED GTT ORDERED TO GIVE NORMAL SALINE 1 LITER BOLUS AND ADD ANOTHER VASOPRESSOR, VASOPRESSIN DRIP, TITRATE TO A MAXIMUM OF 0.04 PER MINUTE.
--- NOTE | 2022-04-28 10:30 | NUR ---
HD DAYS ARE [id number]-SUNDAY. DR. HODGES (RENAL) CAME & WILL DO HD ON PATIENT. WILL WRITE CALCITRIOL. PATIENT BEEN WANTING TO GO TO BATHROOM THEN LATER COMMODE. BUT JUST SITTING UP MAKES THE BP GOES DOWN TO 80/50 MmmHg. AND HAS A FEMORAL RIGHT GROIN HD CATHETER. PATIENT INSISTS THAT HE IS SITTING IN HIS WHEELCHAIR AT HOME WITH HD CATH ON RIGHT GROIN. VERBALIZED THAT HE WOULD GO HOME AGAINST MEDICAL ADVICE. PATIENT INSISTS THAT HE IS STABLE ON HIS LEGS, BUT CAREFUL WITH HIS HISTORY OF KNEE SURGERY. USES WALKER AT HOME.
[2022-04-28] MEDS: MORPHINE SULFATE 2 MG/ML SYR IVP PRN ×2 (10:52→21:09)
[2022-04-28] MEDS: ONDANSETRON 4 MG/2 ML VIAL IVP PRN ×2 (10:55→21:08)
[2022-04-28] MEDS ORDERED: VASOPRESSIN 20 UNITS in NACL 0.9% 250 ML IV SCH (11:00)
[2022-04-28] MEDS ORDERED: INSULIN LISPRO SLIDING SCALE 100 UNITS/ML VIAL SUBQ PRN (11:05)
[2022-04-28] MEDS ORDERED: DEXTROSE 50% 50 ML SYR IVP PRN (11:05)
[2022-04-28] MEDS ORDERED: NACL 0.9% 1,000 ML IV SCH (11:05)
[2022-04-28] MEDS: BLOOD GLUCOSE MONITORING 1 DEV DEV FS SCH ×3 (12:04→21:16)
[2022-04-28] MEDS: HYDROCORTISONE NA SUCC 100 MG/2 ML VIAL IV SCH ×2 (12:50→21:27)
--- NOTE | 2022-04-28 15:06 | NUR ---
04/28/22 RD INITIAL ASSESSMENT COMPLETED PLEASE REFER TO NUTRITION ASSESSMENT UNDER CARE ACTIVITY FOR ESTIMATED NUTRITIONAL NEEDS. 1. CONTINUE RENAL DIET TOLERATED 2. RECOMMEND NEPRO TID FOR NUTRITION SUPPORT 3. MONITOR GI SYMPTOMS AND PO INTAKE 4. RD TO FOLLOW-UP 2-3 DAYS, HIGH RISK REVIEWED BY WIN ROD RD
--- NOTE | 2022-04-28 16:30 | NUR ---
DR. CADET, (I&D) CAME, NOTED ABOUT LEVOPHED, WBC, RT.GROIN HD ACCESS, NO AV FISTULA WORKING. STARTED ON DAPTOMYCIN
[2022-04-28] MEDS ORDERED: COMMUNICATION ORDER MC SCH (17:10)
--- NOTE | 2022-04-28 17:43 | NUR ---
PLACED ON NASAL CANNULA AT 2LPM. PT. WAS SLEEPING SpO2 GOES DOWN TO 86/MINUTE WHEN SLEEPING AROUND 1335HRS. DIETITIAN CAME EARLIER AROUND LUNCHTIME, PT.WAS NAUSEATED, GIVEN ANTI-EMETIC. HE SAID NAUSEA STARTED WITH PAIN MEDICATIONS (TABLET & INJECTION) FOR HIS LEFT SHOULDER PAIN. HR DOWN TO 47-50/MINUTE EVEN AWAKE. BP STABLE WITH LEVOPHED. PATIENT SAID THAT HE HAS THAT LOW HR BEFORE. INFORMED DR. LAMBERT & SAID TO INFORM METHODS TIME ANALYST, DR. COTTON. INFORMED EKG WAS 116/MINUTE, ST. AWAITING FOR REPLY
[2022-04-28] MEDS ORDERED: ALTEPLASE 2 MG VIAL MC SCH (18:00)
--- NOTE | 2022-04-28 18:22 | NUR ---
CALLED UP ER FOR THE SECOND TIME, FOR ER PHYSICIAN TO PLACE CENTRAL LINE. GASKET FORMER SAID, UNABLE TO PLACE A CENTRAL LINE, HAVE A STROKE PT. IN ED. AWAITING DR. JERRY (SURGEON) TO PLACE A CENTRAL LINE ON PATIENT. INFORMED PHARMACY TO MAKE 2 BAGS MORE OF THE LEVOPHED 4MG/250 MLS.
--- NOTE | 2022-04-28 19:14 | NUR ---
PT. HANDED OVER TO NIGHT MAXI FINNEGAN, PENDING HD DUE TO DE-CLOTTING WITH ALTEPLACE/CATHFLO. DAPTOMYCIN TO BE GIVEN AFTER HD. DR. COTTON INFORMED OF HR, NO INTERVENTION RIGHT NOW. PENDING FOR CENTRAL LINE
--- NOTE | 2022-04-28 19:30 | NUR ---
RECEIVED BEDSIDE REPORT FROM DAY SHIFT NURSE, ASSUMED CARE. PT RECEIVING HEMODIALYSIS AT THIS TIME WITH HD NURSE AT BEDSIDE. HD ACCESS ON R FEMORAL TUNNELED CATHETER. PT IN NO APPARENT ACUTE DISTRESS BREATHING ON NC AT 2L. CURRENTLY ON LEVOPHED AT 26 MCG/MIN RUNNING THROUGH PERIPHERAL IV ON L FOREARM 18 G. PT SLEEPING WITH NO SIGNS OF PAIN OR DISCOMFORT. WILL CONTINUE TO CLOSELY MONITOR.
--- NOTE | 2022-04-28 19:30 | NUR ---
PATIENT HANDED OVER TO NIGHT RN KAIN. AWAITING CENTRAL LINE. DR. JERRY DID NOT SHOW UP. WILL NEED TO CALL ED RESIDENT TO PUT A CENTRAL LINE. HAS 3 BAGS OF LEVOPHED 4MG/250MLS. DAPTOMYCIN TO GIVEN TO PATIENT. ON GOING HD.
--- NOTE | 2022-04-28 21:00 | NUR ---
HD COMPLETE WITH OUTPUT OF 900 CC PER HD NURSE. OBSERVED PT HAD 1 EPISODE OF VOMITING, PRN MEDICATION FOR N/V ADMINISTERED. PT ALSO WITH COMPLAINT OF HEADACHE, ADMINISTERED PRN PAIN MEDICATION PER ORDERS. PT ON RA WITH O2 SAT 97%. PT CONTINUES TO BE A&O X4.
[2022-04-28] MEDS: NACL 0.9% IV SCH (21:28)
[2022-04-28] MEDS: DAPTOMYCIN IV SCH (21:28)
--- NOTE | 2022-04-28 22:40 | NUR ---
RECEIVED LAB REPORT FOR BLOOD CULTURES POSITIVE FOR GRAM COCCI. REPORTED TO DR. CADET, INFECTIOUS DISEASE, WHO GAVE ORDERS TO HAVE R FEMORAL TUNNELED CATHETER HD ACCESS REMOVED AND REPLACED BY DR. JERRY. DR JERRY MADE AWARE OF NEW ORDER AND STATED HE WILL PERFORM PROCEDURE TOMORROW 04/29/22. WILL GET PT CONSENT FOR PROCEDURE.
[2022-04-29] VITALS (24 sets, daily range): BP systolic 88–157; BP diastolic 21–105
--- NOTE | 2022-04-29 | NUR ---
PT SLEEPING IN BED WITH NO SIGNS OF ACUTE DISTRESS. ON 2L NC WITH O2 SAT IN THE MID 90'S. CONTINUES ON LEVOPHED DRIP AT 22MCG/MIN, B/P 97/54. ALL SAFETY MEASURES IN PLACE, CALL LIGHT WITHIN REACH, WILL CONTINUE TO CLOSELY MONITOR AND FOLLOW POC.
--- NOTE | 2022-04-29 03:00 | NUR ---
ASSISTED PT TO BEDSIDE COMMODE, LIQUID BROWN STOOL OBSERVED. PT IN NO APPARENT ACUTE DISTRESS BREATHING ON RA, O2 SAT 96%, BREATHING EVEN AND UNLABORED. LEVOPHED DRIP RUNNING AT 10 MCG/MIN. ASSISTED PT WITH MORNING CARE, PT INDEPENDENT ABLE TO PERFORM ADLS INDEPENDENTLY WITH MINIMAL ASSISTANCE. CONTINUES A&O X4. ALL SAFETY MEASURES IN PLACE, CALL LIGHT WITHIN REACH. WILL CONTINUE TO CLOSELY MONITOR AND FOLLOW POC.
[2022-04-29] MEDS: PIPERACILLIN/TAZOBACTAM 2.25 GM in DEXTROSE 5% 50 ML IV SCH ×2 (03:18→11:37)
[2022-04-29] MEDS: ONDANSETRON 4 MG/2 ML VIAL IVP PRN ×2 (05:16→21:13)
[2022-04-29] MEDS: HYDROCORTISONE NA SUCC 100 MG/2 ML VIAL IV SCH ×3 (05:20→21:08)
[2022-04-29] MEDS: NOREPINEPHRINE 4 MG in DEXTROSE 5% 250 ML IV SCH ×2 (05:26→17:55)
[2022-04-29 05:29] LABS: BASOPHILS % (AUTO) 0.1 % (0.0-2.0); EOSINOPHILS % (AUTO) 0.1 % (0.0-4.0); HEMATOCRIT 41.9 % (36-52); HEMOGLOBIN 13.9 g/dL (12.0-18.0); LYMPHOCYTES # (AUTO) 0.5 K/uL (2.0-11.5); LYMPHOCYTES % (AUTO) 5.5 % (20.5-51.1); MEAN CORPUSCULAR HEMOGLOBIN 29 pg (27-31); MEAN CORPUSCULAR HGB CONC 33 g/dL (33-37); MEAN CORPUSCULAR VOLUME 87.3 fL (80-94); MONOCYTES # (AUTO) 0.5 K/uL (0.8-1.0); MONOCYTES % (AUTO) 5.9 % (1.7-9.3); NEUTROPHILS # (AUTO) 7.7 K/uL (1.8-7.7); PLATELET COUNT (AUTO) 91 K/uL (140-450); RED CELL DISTRIBUTION WIDTH 17.1 % (11.6-13.7); WHITE BLOOD COUNT (AUTO) 8.7 K/uL (4.8-10.8)
[2022-04-29 05:31] LABS: CARBON DIOXIDE 25.2 mmol/L (21-32); POTASSIUM 5.2 mmol/L (3.5-5.1)
[2022-04-29 06:14] LABS: NEUTROPHILS % (AUTO) 88.4 % (42.2-75.2)
--- NOTE | 2022-04-29 07:10 | NUR ---
RECEIVED BEDSIDE REPORT FROM KAIN GERMAN FOR CONTINUITY OF CARE. PT A&OX4. ROOM AIR, RESPIRATIONS EVEN AND UNLABORED. BP STABLE. BILATERAL NONFUNCTIONING AV FISTULA. R FEMORAL TUNNELED HD CATH IN PLACE. L FA 18G IV RUNNING LEVO AT 10 MCG/MIN. SAMIRA 20G IV, SALINE LOCK. R WRIST 20G IV SALINE LOCK. RENAL DIET. ANURIC. AMBULATORY TO COMMODE WITH ASSISTANCE. STANDARD PRECAUTION. BED IN LOWEST POSITION, CALL LIGHT WITHIN REACH.
[2022-04-29] MEDS: BLOOD GLUCOSE MONITORING 1 DEV DEV FS SCH ×4 (07:27→21:08)
[2022-04-29] MEDS: MIDODRINE 5 MG TAB PO SCH ×3 (08:50→16:27)
[2022-04-29] MEDS ORDERED: COMMUNICATION ORDER MC ONE (09:55)
--- NOTE | 2022-04-29 10:30 | NUR ---
PT C/O EDEMA AND PAIN NEAR LEFT FA IV SITE, WHICH WAS INFUSING LEVOPHED. STOPPED INFUSION, FLUSHED AND ATTEMPTED TO ASPIRATE WITH NO SUCCESS. SEVERE PAIN WITH FLUSHING. AREA SURROUNDING IV IS REDDENED, UNBROKEN SKIN, NORMAL SKIN TEMP, WITH NONPITTING EDEMA, FULL MOBILITY, PAIN 5/10. FLUSHED AND ASPIRATED R FA IV, FLUSHES WELL, GOOD BLOOD RETURN WITH NO PAIN. BEGAN LEVOPHED INFUSION ON RA. D/C L FA IV. CONTACTED DR. NOLASCO FOR ORDERS FOR EXTRAVASATION PROTOCOL. ORDERED ONE TIME DOSE OF PHENTOLAMINE 5MG SUBQ INJ.
--- NOTE | 2022-04-29 10:40 | NUR ---
ALTERNATING ICE AND HEAT PACKS TO PAINFUL AND EDEMATOUS AREA ON LA.
[2022-04-29] MEDS ORDERED: PHENTOLAMINE 5 MG VIAL MC SCH (12:00)
--- NOTE | 2022-04-29 12:15 | NUR ---
SEEN BY DR. NOLASCO AT BEDSIDE. UPDATED ON POC. NO NEW ORDERS.
[2022-04-29] MEDS: MORPHINE SULFATE 2 MG/ML SYR IVP PRN ×2 (12:41→21:13)
--- NOTE | 2022-04-29 12:41 | NUR ---
ADMINISTERED 2MG MORPHINE PRIOR TO PHENTOLAMINE SUBQ INJECTION PER REQUEST OF PT.
--- NOTE | 2022-04-29 13:05 | NUR ---
SEEN AT BEDSIDE BY DR. JERRY FOR DISCUSSION OF HD CATH PLACEMENT. PT REFUSED CONSENT. PT CURRENTLY HAS R FEM TUNNELED HD CATH, WISHES TO ONLY CHANGE HD CATH AND REMAIN IN R FEM, NOT INSERT IN A DIFFERENT LOCATION. AWARE.
--- NOTE | 2022-04-29 13:20 | NUR ---
SEEN AND EXAMINED BY DR. JOE. ORDERS TO TITRATE DOWN ON LEVO.
--- NOTE | 2022-04-29 13:25 | NUR ---
DISCUSSED PLAN OF CARE WITH DR. JAMES AT BEDSIDE. NO NEW ORDERS.
--- NOTE | 2022-04-29 13:41 | NUR ---
DIALYSIS NURSE AT BEDSIDE.
[2022-04-29] MEDS ORDERED: ALBUMIN HUMAN 25% 100 ML IV ONE (14:59)
[2022-04-29] MEDS ORDERED: ALBUMIN HUMAN 25% 100 ML IV SCH (15:15)
--- NOTE | 2022-04-29 17:20 | NUR ---
L UPPER ARM LOCALIZED EDEMA NEAR IV, CURRENTLY RUNNING NS TKO. D/C NS LINE FOR NOW. MONITORING IV STATUS. NO PAIN WITH FLUSHING.
--- NOTE | 2022-04-29 19:20 | NUR ---
REPORT RECEIVED FROM WILLIAM GERMAN. PT SITTING ON THE SIDE OF THE BED PULSE OX ON A PORTABLE SITTING ON THE BED . PT'S HEART RATE IN THE 40'S. PT IS ON LEVOPHED 2MCG/KG/MIN INCREASED TO 4MCG AT 1999. PT REQUESTED TO HAVE THE SAMIRA IV REMOVED. IV REMOVED AND DRSG APPLIED.. PT IS ON DIALYSIS 4 X A WEEK AND HIS ACCESS IS THE RIGHT FEMORAL. HE IS MOBILE AND MOVES HIMSELF WITH EASE.
--- NOTE | 2022-04-29 19:25 | NUR ---
ENDORSED REPORT TO CIRO STOCK WORKER RN FOR CONTINUITY OF CARE.
--- NOTE | 2022-04-29 23:24 | NUR ---
PTMIS RESTING COMFORTABLY, STATES HE'S OKAY AT THIS TIME .LYING ON HIS LEFT SIDE WITH HIS PHONE IN HIS HAND.
[2022-04-30] VITALS (24 sets, daily range): BP systolic 86–159; BP diastolic 24–93
--- NOTE | 2022-04-30 00:20 | NUR ---
PT IS UP TO BEDSIDE COMMODE, COMPLAINING OF INSOMNIA. TEXTED DR. NOLASCO TO REQUEST A SLEEPER. WAITING FOR RESPONSE.
[2022-04-30] MEDS ORDERED: ZOLPIDEM 5 MG TAB PO PRN (00:35)
--- NOTE | 2022-04-30 01:19 | NUR ---
DR. NOLASCO GAVE AN ORDER FOR AMBIEN 5MG QHS PRN INSOMNIA , BUT LATER DISCOVERED HI\T HAD A 10MG AMBIEN ORDER ON THE OCT. APOLOGY SENT TO DR. NOLASCO. PT IS NOW SITTING ON THE SIDE OF THE BED WITH A PILLOW ON THE BEDSIDE TABLE. HE SAID HE FELT BAD IN HIS STOMACH. HE SAID IT WAS BECAUSE THEY DIDN'T REMOVE ENOUGH FLUID DURING DIALYSIS. HE HAD A SMALL BM. HE'S VERY RESTLESS. HE REFUSED AM CARE .
[2022-04-30] MEDS: HYDROCORTISONE NA SUCC 100 MG/2 ML VIAL IV SCH ×3 (04:38→20:29)
--- NOTE | 2022-04-30 04:52 | NUR ---
PT CONTINUES TO REFUSE AM CARE. STATES I'M OKAY;I WANT TO SLEEP NOW.
[2022-04-30 04:58] LABS: ANION GAP 17.3 (8-16); CARBON DIOXIDE 24.2 mmol/L (21-32); POTASSIUM 4.5 mmol/L (3.5-5.1)
[2022-04-30 04:59] LABS: BASOPHILS % (AUTO) 0.1 % (0.0-2.0); HEMATOCRIT 38.5 % (36-52); HEMOGLOBIN 12.8 g/dL (12.0-18.0); LYMPHOCYTES # (AUTO) 0.5 K/uL (2.0-11.5); LYMPHOCYTES % (AUTO) 7.1 % (20.5-51.1); MEAN CORPUSCULAR HEMOGLOBIN 29 pg (27-31); MEAN CORPUSCULAR HGB CONC 33 g/dL (33-37); MEAN CORPUSCULAR VOLUME 85.8 fL (80-94); MONOCYTES # (AUTO) 0.5 K/uL (0.8-1.0); MONOCYTES % (AUTO) 6.3 % (1.7-9.3); NEUTROPHILS # (AUTO) 6.5 K/uL (1.8-7.7); NEUTROPHILS % (AUTO) 86.5 % (42.2-75.2); PLATELET COUNT (AUTO) 100 K/uL (140-450); RED BLOOD CELL COUNT(AUTO) 4.49 MIL/uL (4.20-6.10); RED CELL DISTRIBUTION WIDTH 17.5 % (11.6-13.7); WHITE BLOOD COUNT (AUTO) 7.5 K/uL (4.8-10.8)
[2022-04-30 05:35] LABS: CREATININE 6.1 mg/dL (0.6-1.3)
[2022-04-30] MEDS: BLOOD GLUCOSE MONITORING 1 DEV DEV FS SCH ×4 (07:36→21:00)
--- NOTE | 2022-04-30 07:49 | NUR ---
RECEIVED BEDSIDE REPORT FROM KAIN GERMAN FOR CONTINUITY OF CARE. A&OX4. PT LYING IN BED COMFORTABLY, RESPIRATIONS UNLABORED WITH OCCASIONAL SLEEP APNEA. ROOM AIR. BP STABLE. BILATERAL NONFUNCTIONING AV FISTULA. R FEMORAL TUNNELED HD CATH IN PLACE. R FA 20G IV RUNNING LEVO AT 4 MCG/MIN. RENAL DIET. ANURIC. AMBULATORY TO COMMODE WITH ASSISTANCE AND WALKER. CONTACT PRECAUTION FOR MRSA IN NARES. BED IN LOWEST POSITION, CALL LIGHT WITHIN REACH. Addendum: 04/30/22 at 1844 by Dunia Harden RN RECEIVED BEDSIDE REPORT FROM CIRO GERMAN
[2022-04-30] MEDS: MIDODRINE 5 MG TAB PO SCH ×3 (09:14→16:38)
--- NOTE | 2022-04-30 10:47 | NUR ---
SCREEN FOR LOW NARCISO SCALE AT RISK, CONTINUE TO FOLLOW PRESSURE ULCER PREVENTION INTERVENTIONS. -TURN AND REPOSITION PATIENT Q 2H, ASSIST IF NEEDED -ASSESS AND MONITOR SKIN CONDITION DURING POSITION CHANGES -OFFLOAD BILATERAL HEELS BY PLACING PILLOWS UNDER CALVES AT ALL TIMES, UNLESS OTHERWISE CONTRAINDICATED -PRESSURE REDISTRIBUTION BY PLACING PILLOWS AND OFFLOADING SACRALCOCCYX -KEEP SKIN CLEAN AND DRY AT ALL TIMES.
--- NOTE | 2022-04-30 12:30 | NUR ---
TITRATED LEVO OFF. BP 109/72, MAP 88. Addendum: 04/30/22 at 1349 by Dunia Harden RN DISREGARD, WRONG PT.
--- NOTE | 2022-04-30 12:45 | NUR ---
SEEN AND EXAMINED BY DR. NOLASCO. ORDERS RECEIVED.
[2022-04-30] MEDS: NOREPINEPHRINE 4 MG in DEXTROSE 5% 250 ML IV SCH (13:15)
--- NOTE | 2022-04-30 13:38 | NUR ---
SEEN AND EXAMINED BY DR. JOE. NO NEW ORDERS.
--- NOTE | 2022-04-30 14:10 | NUR ---
SEEN AND EXAMINED BY DR. CADET AT BEDSIDE. DISCUSSED POC WITH PT AND FAMILY.
--- NOTE | 2022-04-30 15:00 | NUR ---
TITRATED LEVO OFF. BP STABLE.
--- NOTE | 2022-04-30 15:24 | NUR ---
DR. ERIKA AGUILAR AT BEDSIDE. UPDATED PT ON POC. NO FURTHER QUESTIONS AT THIS TIME.
--- NOTE | 2022-04-30 16:10 | NUR ---
FAMILY AT BEDSIDE.
[2022-04-30] MEDS: DAPTOMYCIN IV SCH (18:25)
[2022-04-30] MEDS: NACL 0.9% IV SCH (18:25)
--- NOTE | 2022-04-30 18:48 | NUR ---
PT RESTING COMFORTABLY IN BED, RESPIRATIONS EVEN AND UNLABORED. HR DROPS TO HIGH 30'S-MID 40'S WHEN SLEEPING. MAINTAINS SR. BP STABLE, MAP REMAINS ABOVE 65. O2 SAT MAINTAINS ABOUT 95%. NOTIFIED DR. NOLASCO, AWAITING RESPONSE. Addendum: 04/30/22 at 1849 by Dunia Harden RN O2 SAT MAINTAINS ABOVE 95%.
--- NOTE | 2022-04-30 19:25 | NUR ---
ENDORSED BEDSIDE REPORT TO [place] RN FOR CONTINUITY OF CARE.
--- NOTE | 2022-04-30 20:54 | NUR ---
PATIENT ALERT AND ORIENTED X4. ABLE TO MAKE NEEDS KNOWN. ON ROOM AIR, RESPIRATIONS EVEN AND UNLABORED. ON RENAL DIET. ACTIVE BOWEL SOUNDS. SR ON BEDSIDE MONITOR. 2O GAUGE PERIPHERAL IV ACCESS TO RIGHT WRIST WITH NS RUNNING KVO. RIGHT FEMORAL CENTRAL LINE FOR DIALYSIS. BLOOD SUGAR AT THIS TIME 122. PATIENT RESTING AND DENIES ANY COMPLAINTS OF PAIN.
--- NOTE | 2022-04-30 22:50 | NUR ---
MESSAGE SENT TO DR COTTON,POWER TRANSFORMER INSPECTOR RE; HR 30'S AND LOW 40'S, PT OFF LEVOPHED SINCE AM SHIFT AND PT IS AWAKE ALERT AND ORIENTED. PER DR COTTON, JUST TO CONTINUE MONITORING PT WHILE OFF LEVOPHED,MARQUIS RN,PRIMARY CARE NURSE AWARE
[2022-04-30] MEDS: MORPHINE SULFATE 2 MG/ML SYR IVP PRN (23:15)
--- NOTE | 2022-04-30 23:37 | NUR ---
PATIENT UP IN BED EATING DINNER.
[2022-05-01] VITALS (24 sets, daily range): BP systolic 74–146; BP diastolic 30–86
--- NOTE | 2022-05-01 02:00 | NUR ---
PT FINISHED USING BEDSIDE COMMODE. MEDIUM SOFT BM. DARK BROWNISH IN COLOR.
--- NOTE | 2022-05-01 03:01 | NUR ---
[place] RESTING. BREATHING EVEN AND UNLABORED.
[2022-05-01] MEDS: HYDROCORTISONE NA SUCC 100 MG/2 ML VIAL IV SCH ×3 (04:53→20:38)
[2022-05-01 06:28] LABS: BASOPHILS % (AUTO) 0.1 % (0.0-2.0); EOSINOPHILS % (AUTO) 0.1 % (0.0-4.0); HEMATOCRIT 40.1 % (36-52); HEMOGLOBIN 13.1 g/dL (12.0-18.0); LYMPHOCYTES # (AUTO) 0.9 K/uL (2.0-11.5); LYMPHOCYTES % (AUTO) 11.8 % (20.5-51.1); MEAN CORPUSCULAR HEMOGLOBIN 29 pg (27-31); MEAN CORPUSCULAR HGB CONC 33 g/dL (33-37); MEAN CORPUSCULAR VOLUME 88.3 fL (80-94); MONOCYTES # (AUTO) 0.5 K/uL (0.8-1.0); MONOCYTES % (AUTO) 6.3 % (1.7-9.3); NEUTROPHILS # (AUTO) 6.2 K/uL (1.8-7.7); NEUTROPHILS % (AUTO) 81.7 % (42.2-75.2); PLATELET COUNT (AUTO) 117 K/uL (140-450); RED BLOOD CELL COUNT(AUTO) 4.54 MIL/uL (4.20-6.10); RED CELL DISTRIBUTION WIDTH 17.6 % (11.6-13.7); WHITE BLOOD COUNT (AUTO) 7.6 K/uL (4.8-10.8)
[2022-05-01 06:42] LABS: ANION GAP 18.7 (8-16); CARBON DIOXIDE 24.7 mmol/L (21-32); POTASSIUM 4.4 mmol/L (3.5-5.1)
[2022-05-01 06:46] LABS: CREATININE 7.8 mg/dL (0.6-1.3)
--- NOTE | 2022-05-01 07:09 | NUR ---
REPORT GIVEN TO AM SHIFT MAXI JANSEN.
--- NOTE | 2022-05-01 07:19 | NUR ---
RECEIVED BEDSIDE REPORT FROM MARQUIS GERMAN FOR CONTINUITY OF CARE. A&OX4. ABLE TO MAKE NEEDS KNOWN. PT LYING IN BED COMFORTABLY, RESPIRATIONS UNLABORED WITH OCCASIONAL SLEEP APNEA. ROOM AIR. SAO2 99%. BILATERAL NONFUNCTIONING AV FISTULA. R FEMORAL TUNNELED HD CATH IN PLACE. R FA 20G IV, SALINE LOCK. RENAL DIET. ANURIC. AMBULATORY TO COMMODE WITH ASSISTANCE AND WALKER. CONTACT PRECAUTION FOR MRSA IN NARES. BED IN LOWEST POSITION, CALL LIGHT WITHIN REACH.
[2022-05-01] MEDS: BLOOD GLUCOSE MONITORING 1 DEV DEV FS SCH ×4 (07:30→21:12)
[2022-05-01] MEDS: MIDODRINE 5 MG TAB PO SCH ×3 (08:05→16:34)
--- NOTE | 2022-05-01 08:35 | NUR ---
SEEN AND EXAMINED BY DR. JOE. NO NEW ORDERS.
--- NOTE | 2022-05-01 09:25 | NUR ---
SEEN AND EXAMINED BY DR. GILMORE. DISCUSSED POC WITH PT.
--- NOTE | 2022-05-01 11:48 | NUR ---
05/01/22 RD FOLLOW UP COMPLETED.PLEASE REFER TO NUTRITION ASSESSMENT UNDER CARE ACTIVITY FOR ESTIMATED NUTRITIONAL NEEDS. 1. CONTINUE RENAL DIET TOLERATED 2. CONTINUE NEPRO TID TO OPTIMIZE NUTRITIONAL NEEDS 3. MONITOR GI SYMPTOMS AND PO INTAKE 4. RD TO FOLLOW-UP IN 3-5 DAYS PATIENT IS MODERATE RISK. SAROJ ROD RD
--- NOTE | 2022-05-01 12:15 | NUR ---
DIALYSIS NURSE AT BEDSIDE.
--- NOTE | 2022-05-01 14:45 | NUR ---
DIALYSIS FINISHED, 1.5L OUT. PT TOLERATED WELL. BP REMAINS STABLE. ALL COMFORT NEEDS MET AT THIS TIME.
[2022-05-01] MEDS ORDERED: VANCOMYCIN PER PHARMACY MC PRN (16:15)
--- NOTE | 2022-05-01 17:11 | NUR ---
PT EAGER TO GO HOME. REQUESTS TO HAVE HD CATH REPLACED IN SAME SITE TOMORROW OR TO SPEAK TO NEPHROLOGY REGARDING PLAN OF CARE. PAGED DR. WILEY FOR ORDERS, WHO REFERRED ME TO DR. JERRY. DR JERRY SAID HE IS NOT LEAD INSTALLER FOR THIS WEEK. MESSAGED SURGEON LEAD INSTALLER, DR. ROBERTS, AWAITING RESPONSE.
[2022-05-01] MEDS ORDERED: VANCOMYCIN 1GM/DEXT 5% PREMIX 200 ML IV SCH (18:00)
--- NOTE | 2022-05-01 18:04 | NUR ---
DR. ROBERTS STATED HE DOES NOT USUALLY DO HD CATH PLACEMENTS AND DEFER TO VASCULAR.
--- NOTE | 2022-05-01 18:21 | NUR ---
SEEN AND EXAMINED BY DR. WILEY AT BEDSIDE. DISCUSSED PLAN OF CARE WITH PT, SEE DR REARDON.
--- NOTE | 2022-05-01 19:15 | NUR ---
ENDORSED BEDSIDE REPORT TO RECYCLING WORKER RN VAN FOR CONTINUITY OF CARE.
--- NOTE | 2022-05-01 19:26 | NUR ---
RECEIVED REPORT FROM AM SHIFT MAXI JANSEN. PATIENT A&O X4. ON ROOM AIR. BREATHING EVEN AND UNLABORED. PATIENT ON RENAL DIET. PATIENT IS ANURIC AND IS ON CONTINENT FOR BOWEL MOVEMENTS. SINUS RHYTHM TO BEDSIDE MONITOR. 20 GAUGE PERIPHERAL IV SITE TO RIGHT FOREARM. RIGHT FEMORAL CENTRAL SITE FOR DIALYSIS. NO DRIPS OR FLUIDS ON GOING AT THIS TIME. SKIN IS INTACT. NO C/O PAIN AT THIS TIME.
--- NOTE | 2022-05-01 21:02 | NUR ---
DR. JERRY AT BEDSIDE. SPOKE TO PT ABOUT FEMORAL CATHETER REPLACEMENT IN THE MORNING. PT AGREED AND CONSENT HAS BEEN SIGNED.
--- NOTE | 2022-05-01 22:00 | NUR ---
PT HAD MEDIUM BM. SOFT AND DARK BROWN IN COLOR.
[2022-05-02] VITALS (16 sets, daily range): BP systolic 90–186; BP diastolic 40–91
--- NOTE | 2022-05-02 01:59 | NUR ---
PT ON NPO FOR DIALYSIS CATHETER REPLACEMENT IN THE MORNING.
[2022-05-02] MEDS: MORPHINE SULFATE 2 MG/ML SYR IVP PRN (03:09)
[2022-05-02] MEDS: HYDROCORTISONE NA SUCC 100 MG/2 ML VIAL IV SCH ×2 (05:00→13:38)
[2022-05-02 05:41] LABS: ANION GAP 16.5 (8-16); CARBON DIOXIDE 24.8 mmol/L (21-32); POTASSIUM 4.3 mmol/L (3.5-5.1)
--- NOTE | 2022-05-02 06:02 | NUR ---
LAB REPORTED CRITICAL LAB VALUES OF BUN 46 AND CREATININE 6.5. LAB LEVELS ARE ON THE TREND DOWN AND PT HAS DIALYSIS.
[2022-05-02 06:08] LABS: CREATININE 6.5 mg/dL (0.6-1.3)
[2022-05-02 06:43] LABS: BASOPHILS % (AUTO) 0.1 % (0.0-2.0); EOSINOPHILS % (AUTO) 0.1 % (0.0-4.0); HEMATOCRIT 38.5 % (36-52); HEMOGLOBIN 12.7 g/dL (12.0-18.0); LYMPHOCYTES # (AUTO) 0.8 K/uL (2.0-11.5); LYMPHOCYTES % (AUTO) 15.3 % (20.5-51.1); MEAN CORPUSCULAR HEMOGLOBIN 29 pg (27-31); MEAN CORPUSCULAR HGB CONC 33 g/dL (33-37); MEAN CORPUSCULAR VOLUME 87.9 fL (80-94); MONOCYTES # (AUTO) 0.3 K/uL (0.8-1.0); MONOCYTES % (AUTO) 6.2 % (1.7-9.3); NEUTROPHILS # (AUTO) 3.9 K/uL (1.8-7.7); NEUTROPHILS % (AUTO) 78.3 % (42.2-75.2); PLATELET COUNT (AUTO) 111 K/uL (140-450); RED BLOOD CELL COUNT(AUTO) 4.38 MIL/uL (4.20-6.10); RED CELL DISTRIBUTION WIDTH 17.2 % (11.6-13.7); WHITE BLOOD COUNT (AUTO) 4.9 K/uL (4.8-10.8)
--- NOTE | 2022-05-02 07:21 | NUR ---
REPORT GIVEN TO AM SHIFT NURSE ZARA.
--- NOTE | 2022-05-02 07:25 | NUR ---
Received pt alert and oriented x4. O2 sat 92% on room air. Sinus lida on monitor. NPO since midnight for dialysis catheter removal and insertion of new dialysis catheter. Peripheral IV on right forearm 20 gauge intact and patent on saline lock. Safety precautions in place.
[2022-05-02 07:29] LABS: PROTHROMBIN TIME 10.7 secs (10.8-13.4)
--- NOTE | 2022-05-02 07:44 | NUR ---
Seen and examined by Dr. Villa.
--- NOTE | 2022-05-02 07:54 | NUR ---
Reported critical high creatinine to Dr. Alonso. Creatinine trended down. No new orders.
--- NOTE | 2022-05-02 08:05 | NUR ---
Seen and examined by Dr. Reno.
[2022-05-02] MEDS: BLOOD GLUCOSE MONITORING 1 DEV DEV FS SCH ×3 (08:10→16:26)
[2022-05-02] MEDS: MIDODRINE 5 MG TAB PO SCH ×3 (08:13→16:35)
--- NOTE | 2022-05-02 09:15 | NUR ---
Pt transferred to OR via bed.
[2022-05-02] MEDS ORDERED: BUPIVACAINE MPF 0.25% 10 ML VIAL INJ ONE (09:23)
[2022-05-02] MEDS ORDERED: PROPOFOL 200 MG/20 ML VIAL IV ONE ×2 (09:24)
[2022-05-02] MEDS ORDERED: LIDOCAINE 1% 500 MG/50 ML VIAL ONE (09:24)
[2022-05-02] MEDS ORDERED: MIDAZOLAM 2 MG/2 ML VIAL ONE (09:25)
[2022-05-02] MEDS ORDERED: GLYCOPYRROLATE 0.2 MG/ML VIAL ONE (09:34)
--- NOTE | 2022-05-02 10:24 | NUR ---
Pt returned to ICU1 via bed. No c/o pain at this time. Received report that dialysis catheter removed, but unable to insert new dialysis catheter and will transfer to higher level of care.
[2022-05-02] MEDS ORDERED: MORPHINE SULFATE 2 MG/ML SYR IVP PRN (10:25)
[2022-05-02] MEDS ORDERED: HYDROmorphone 1 MG/ML AMP IVP PRN (10:25)
[2022-05-02] MEDS ORDERED: MORPHINE SULFATE 4 MG/ML SYR IV PRN (10:25)
[2022-05-02] MEDS ORDERED: HYDROcodone/APAP 5/325 MG 1 TAB TAB PO PRN (10:25)
--- NOTE | 2022-05-02 11:45 | NUR ---
Dr. Patricio on phone with radiologist Dr. Rodriguez regarding placement of tunneled dialysis catheter on 05/04/22. Dr. Patricio at bedside examining pt and updated pt with plan. Blood culture still pending.
[2022-05-02] MEDS ORDERED: VANCOMYCIN 1,000 MG in DEXTROSE 5% 250 ML IV SCH (12:00)
--- NOTE | 2022-05-02 12:10 | NUR ---
Pt removed EKG leads and pulse oximeter and refuses to have it in place. Risk and benefits explained.
--- NOTE | 2022-05-02 13:40 | NUR ---
Placed pt back on vehicle monitor technician.
--- NOTE | 2022-05-02 15:21 | NUR ---
Seen and examined by Dr. Matson. Per Dr. Matson, pt to be discharged home and then go to [facility] for dialysis catheter placement. Addendum: 05/02/22 at 1522 by Sandra Clement RN Dr. Matson spoke to Dr. Reno regarding plan.
--- NOTE | 2022-05-02 17:16 | NUR ---
Transferred pt to front lobby via wheelchair along with family. Niece picked up patient at front lobby.
== END 2022-05-02 17:16 | disposition home or self-care (01) | DRG 721 ==
LOC: MED 18:02 → MTU 04-28 00:02 → MIC 04-28 00:29
PROVIDERS: ADMIT Family Medicine; ATTEND Family Medicine
PROC: 5A1D70Z Performance of Urinary Filtration, Intermittent, Less than 6 Hours Per Day (ICD-10-PCS; 2022-04-28)
PROC: 5A1D70Z Performance of Urinary Filtration, Intermittent, Less than 6 Hours Per Day (ICD-10-PCS; 2022-04-29)
PROC: 5A1D70Z Performance of Urinary Filtration, Intermittent, Less than 6 Hours Per Day (ICD-10-PCS; 2022-04-30)
PROC: 06PYX3Z Removal of Infusion Device from Lower Vein, External Approach (ICD-10-PCS; 2022-05-02)
PROC: 06HY33Z Insertion of Infusion Device into Lower Vein, Percutaneous Approach (ICD-10-PCS; 2022-05-02)
PROC: B54DZZA Ultrasonography of Bilateral Lower Extremity Veins, Guidance (ICD-10-PCS; 2022-05-02)
PROC: B51 Imaging, Veins, Fluoroscopy (ICD-10-PCS; 2022-05-02)
PROC: 0JPT3XZ Removal of Tunneled Vascular Access Device from Trunk Subcutaneous Tissue and Fascia, Percutaneous Approach (ICD-10-PCS; principal; 2022-05-02 08:15)
DX: T80.211A Bloodstream infection due to central venous catheter, initial encounter (principal); A41.02 Sepsis due to Methicillin resistant Staphylococcus aureus; R65.21 Severe sepsis with septic shock; I12.0 Hypertensive chronic kidney disease with stage 5 chronic kidney disease or end stage renal disease; N18.6 End stage renal disease; E83.51 Hypocalcemia; D63.1 Anemia in chronic kidney disease; Z20.822 Contact with and (suspected) exposure to COVID-19; E87.5 Hyperkalemia; K52.9 Noninfective gastroenteritis and colitis, unspecified; Y84.8 Other medical procedures as the cause of abnormal reaction of the patient, or of later complication, without mention of misadventure at the time of the procedure; I73.9 Peripheral vascular disease, unspecified; Y92.89 Other specified places as the place of occurrence of the external cause; Z99.2 Dependence on renal dialysis; Z79.899 Other long term (current) drug therapy; Z90.49 Acquired absence of other specified parts of digestive tract; Z83.3 Family history of diabetes mellitus; Z94.0 Kidney transplant status
CPT/HCPCS: 36415; 71045; 80048; 80053; 82948; 83605; 83735; 85025; 85610; 85730; 87040; 87081; 87186; 93005; 93970; 96365; 96367; 96375; 99285; J0878; J1644; J1720; J1815; J2001; J2250; J2270; J2405; J2543; J2704; J2765; J2997; J3010; J3370; J3490; J7060; P9046; Q0092

== ENCOUNTER 2023-09-04 09:57 | Inpatient (IN) | payer OTHER ==
[~2023-09-04] VITALS: Ht 172.7 cm; Wt 79.0 kg
[2023-09-04] VITALS (15 sets, daily range): BP systolic 42–147; BP diastolic 32–104; PULSE 58–107; RESP 11–22; TEMP 97.2–98.1; O2SAT 71–98
[2023-09-04] MEDS ORDERED: NACL 0.9% 1,000 ML IV SCH ×2 (10:25→15:50)
[2023-09-04] MEDS ORDERED: PIPERACILLIN/TAZOBACTAM 3.375 GM in DEXT 5% MINI-BAG PLUS 50 ML IV ONE (10:25)
[2023-09-04 11:07] LABS: BASOPHILS # (AUTO) 0.1 K/uL (0.00-0.22); BASOPHILS % (AUTO) 0.4 % (0.0-2.0); EOSINOPHILS # (AUTO) 0.1 K/uL (0-0.4); EOSINOPHILS % (AUTO) 0.5 % (0.0-4.0); HEMATOCRIT 37.1 % (36-52); HEMOGLOBIN 11.7 g/dL (12.0-18.0); LYMPHOCYTES # (AUTO) 0.7 K/uL (2.0-11.5); MEAN CORPUSCULAR HEMOGLOBIN 24 pg (27-31); MEAN CORPUSCULAR HGB CONC 32 g/dL (33-37); MEAN CORPUSCULAR VOLUME 75.5 fL (80-94); MONOCYTES # (AUTO) 1.6 K/uL (0.8-1.0); NEUTROPHILS # (AUTO) 12.3 K/uL (1.8-7.7); NEUTROPHILS % (AUTO) 83.1 % (42.2-75.2); PLATELET COUNT (AUTO) 175 K/uL (140-450); RED BLOOD CELL COUNT(AUTO) 4.91 MIL/uL (4.20-6.10); RED CELL DISTRIBUTION WIDTH 19.6 % (11.6-13.7); WHITE BLOOD COUNT (AUTO) 14.8 K/uL (4.8-10.8)
[2023-09-04 11:19] LABS: ANION GAP 16.1 (8-16); CALCIUM 8.5 mg/dL (8.5-10.1); CARBON DIOXIDE 26.2 mmol/L (21-32); POTASSIUM 3.3 mmol/L (3.5-5.1)
[2023-09-04 11:23] LABS: INR 1.37 (0.8-1.2); PARTIAL THROMBOPLASTIN TIME 34.3 secs (22-35.6); PROTHROMBIN TIME 14.2 secs (10.8-13.4)
[2023-09-04] MEDS ORDERED: PIPERACILLIN/TAZOBACTAM 3.375 GM VIAL IV ONE (11:24)
[2023-09-04 11:26] LABS: ALANINE AMINOTRANSFERASE 30 U/L (12-78); ALBUMIN 3.3 g/dL (3.4-5.0); ALKALINE PHOSPHATASE 138 U/L (50-136); ASPARTATE AMINOTRANSFERASE 22 U/L (15-37); BILIRUBIN,DIRECT 0.2 mg/dL (0.0-0.3); TOTAL BILIRUBIN 0.8 mg/dL (0.0-1.0); TOTAL PROTEIN, SERUM 9.5 g/dL (6.4-8.2)
[2023-09-04 11:34] LABS: CREATININE 6.4 mg/dL (0.6-1.3)
[2023-09-04] MEDS ORDERED: NOREPINEPHRINE 4 MG in DEXTROSE 5% 250 ML IV STA (11:44)
[2023-09-04] MEDS ORDERED: NACL 0.9% 1,000 ML IV ONE (11:45)
[2023-09-04] MEDS ORDERED: ACETAMINOPHEN 650 MG SUPP RC ONE ×2 (11:55)
[2023-09-04] MEDS ORDERED: ACETAMINOPHEN EXTRA STRENGTH 500 MG TAB PO ONE (11:55)
[2023-09-04] MEDS ORDERED: NOREPINEPHRINE 4 MG/4 ML VIAL IV ONE ×2 (12:08→13:52)
[2023-09-04] MEDS ORDERED: ACETAMINOPHEN 325 MG TAB PO PRN (13:00)
[2023-09-04] MEDS ORDERED: HYDROcodone/APAP 5/325 MG 1 TAB TAB PO PRN ×2 (13:00→16:50)
[2023-09-04] MEDS: NOREPINEPHRINE 4 MG in DEXTROSE 5% 250 ML IV PRN ×3 (14:01→23:14)
[2023-09-04 14:24] LABS: FLU A ANTIGEN negative (NEGATIVE); FLU B ANTIGEN NEGATIVE (NEGATIVE)
[2023-09-04] MEDS ORDERED: NACL 0.9% 500 ML IV ONE (16:05)
[2023-09-04] MEDS ORDERED: VANCOMYCIN PER PHARMACY MC PRN (16:05)
[2023-09-04] MEDS: FLUDROCORTISONE 0.1 MG TAB PO SCH (16:30)
[2023-09-04] MEDS: VANCOMYCIN 750 MG in DEXTROSE 5% 250 ML IV SCH ×2 (17:30→21:05)
[2023-09-04] MEDS: ONDANSETRON 4 MG/2 ML VIAL IVP PRN ×2 (17:50→21:00)
[2023-09-04] MEDS: MIDODRINE 5 MG TAB PO SCH (18:00)
[2023-09-04] MEDS ORDERED: ONDANSETRON 4 MG/5 ML ORASYR GT PRN (18:25)
[2023-09-04] MEDS ORDERED: MORPHINE SULFATE 2 MG/ML SYR IVP SCH (18:45)
[2023-09-04] MEDS: HYDROCORTISONE NA SUCC 100 MG/2 ML VIAL IV SCH (20:52)
[2023-09-04] MEDS ORDERED: METOCLOPRAMIDE 10 MG/2 ML INJ VIAL IVP PRN (21:15)
[2023-09-04] MEDS ORDERED: METOCLOPRAMIDE 10 MG/2 ML INJ VIAL ONE (21:32)
[2023-09-04] MEDS: NOREPINEPHRINE 16 MG in DEXTROSE 5% 250 ML IV PRN (22:21)
[2023-09-05] VITALS (24 sets, daily range): BP systolic 59–158; BP diastolic 32–105; PULSE 48–115; RESP 12–31; TEMP 96.8–97.5; O2SAT 80–100
[2023-09-05] MEDS: NOREPINEPHRINE 4 MG in DEXTROSE 5% 250 ML IV PRN ×2 (00:13→01:12)
[2023-09-05] MEDS: MIDODRINE 5 MG TAB PO SCH ×4 (00:15→18:07)
[2023-09-05] MEDS: VASOPRESSIN 20 UNITS in NACL 0.9% 250 ML IV PRN ×2 (00:34→12:20)
[2023-09-05] MEDS ORDERED: NOREPINEPHRINE 4 MG/4 ML VIAL IV ONE ×3 (01:13→06:18)
[2023-09-05] MEDS: NOREPINEPHRINE 16 MG in DEXTROSE 5% 250 ML IV PRN ×3 (02:04→12:26)
[2023-09-05] MEDS: HYDROCORTISONE NA SUCC 100 MG/2 ML VIAL IV SCH ×3 (04:40→22:58)
[2023-09-05 05:30] LABS: BASOPHILS % (AUTO) 0.1 % (0.0-2.0); HEMATOCRIT 42.9 % (36-52); HEMOGLOBIN 13.3 g/dL (12.0-18.0); LYMPHOCYTES # (AUTO) 0.7 K/uL (2.0-11.5); MEAN CORPUSCULAR HEMOGLOBIN 24 pg (27-31); MEAN CORPUSCULAR HGB CONC 31 g/dL (33-37); MEAN CORPUSCULAR VOLUME 76.9 fL (80-94); MONOCYTES # (AUTO) 1.4 K/uL (0.8-1.0); MONOCYTES % (AUTO) 5.7 % (1.7-9.3); NEUTROPHILS # (AUTO) 22.4 K/uL (1.8-7.7); NEUTROPHILS % (AUTO) 91.2 % (42.2-75.2); PLATELET COUNT (AUTO) 193 K/uL (140-450); RED BLOOD CELL COUNT(AUTO) 5.58 MIL/uL (4.20-6.10); RED CELL DISTRIBUTION WIDTH 19.9 % (11.6-13.7); WHITE BLOOD COUNT (AUTO) 24.6 K/uL (4.8-10.8)
[2023-09-05 06:16] LABS: ALBUMIN 3.6 g/dL (3.4-5.0); ANION GAP 20.5 (8-16); POTASSIUM 4.5 mmol/L (3.5-5.1); TOTAL BILIRUBIN 1.5 mg/dL (0.0-1.0); TOTAL PROTEIN, SERUM 9.7 g/dL (6.4-8.2)
[2023-09-05 07:42] LABS: CALCIUM 7.9 mg/dL (8.5-10.1); CREATININE 0.7 mg/dL (0.6-1.3)
[2023-09-05] MEDS: PANTOPRAZOLE 40 MG INJ VIAL IVP SCH (09:34)
[2023-09-05] MEDS: FLUDROCORTISONE 0.1 MG TAB PO SCH (09:34)
[2023-09-05] MEDS: metroNIDAZOLE 500 MG/NS PREMIX 100 ML IV SCH ×2 (13:00→22:58)
[2023-09-05] MEDS ORDERED: ALTEPLASE 100 MG VIAL IV ONE (16:10)
[2023-09-05] MEDS ORDERED: ALTEPLASE 2 MG VIAL MC SCH (16:30)
[2023-09-05] MEDS: MORPHINE SULFATE 4 MG/ML SYR IVP PRN (22:25)
[2023-09-05] MEDS ORDERED: MORPHINE SULFATE 4 MG/ML SYR ONE (22:25)
[2023-09-06] VITALS (12 sets, daily range): BP systolic 76–147; BP diastolic 48–93; PULSE 45–102; RESP 12–21; TEMP 96–97.7; O2SAT 94–100
[2023-09-06] MEDS: MIDODRINE 5 MG TAB PO SCH ×5 (00:26→23:56)
[2023-09-06 07:42] LABS: BASOPHILS % (AUTO) 0.3 % (0.0-2.0); HEMATOCRIT 34.6 % (36-52); LYMPHOCYTES # (AUTO) 0.2 K/uL (2.0-11.5); LYMPHOCYTES % (AUTO) 2.5 % (20.5-51.1); MEAN CORPUSCULAR HEMOGLOBIN 24 pg (27-31); MEAN CORPUSCULAR HGB CONC 32 g/dL (33-37); MEAN CORPUSCULAR VOLUME 74.7 fL (80-94); MONOCYTES # (AUTO) 0.5 K/uL (0.8-1.0); MONOCYTES % (AUTO) 5.5 % (1.7-9.3); NEUTROPHILS # (AUTO) 8.9 K/uL (1.8-7.7); NEUTROPHILS % (AUTO) 91.7 % (42.2-75.2); PLATELET COUNT (AUTO) 136 K/uL (140-450); RED BLOOD CELL COUNT(AUTO) 4.63 MIL/uL (4.20-6.10); RED CELL DISTRIBUTION WIDTH 19.9 % (11.6-13.7); WHITE BLOOD COUNT (AUTO) 9.7 K/uL (4.8-10.8)
[2023-09-06 07:56] LABS: ANION GAP 18.6 (8-16); CALCIUM 7.8 mg/dL (8.5-10.1); CARBON DIOXIDE 21.9 mmol/L (21-32); POTASSIUM 5.5 mmol/L (3.5-5.1); TOTAL BILIRUBIN 0.8 mg/dL (0.0-1.0); TOTAL PROTEIN, SERUM 8.5 g/dL (6.4-8.2)
[2023-09-06] MEDS: PANTOPRAZOLE 40 MG INJ VIAL IVP SCH (08:04)
[2023-09-06] MEDS: FLUDROCORTISONE 0.1 MG TAB PO SCH (08:04)
[2023-09-06 08:08] LABS: CREATININE 8.3 mg/dL (0.6-1.3)
[2023-09-06] MEDS: HYDROCORTISONE NA SUCC 100 MG/2 ML VIAL IV SCH ×2 (08:28→17:39)
[2023-09-06] MEDS: metroNIDAZOLE 500 MG/NS PREMIX 100 ML IV SCH ×2 (08:28→17:39)
[2023-09-06] MEDS ORDERED: VANCOMYCIN 750 MG in DEXTROSE 5% 250 ML IV SCH (18:00)
[2023-09-06] MEDS: MORPHINE SULFATE 4 MG/ML SYR IVP PRN ×2 (18:55→23:57)
[2023-09-07] VITALS: BP 112/56; PULSE 65; RESP 20; TEMP 97.8; O2SAT 97
[2023-09-07] MEDS ORDERED: MUPIROCIN CA NASAL 2% 1GM TUBE NS SCH (00:30)
[2023-09-07] MEDS ORDERED: CHLORHEXADINE GLUC 2% CLOTH TP SCH (00:30)
[2023-09-07] MEDS: HYDROCORTISONE NA SUCC 100 MG/2 ML VIAL IV SCH (01:07)
[2023-09-07] MEDS: metroNIDAZOLE 500 MG/NS PREMIX 100 ML IV SCH (01:07)
[2023-09-07 04:00] VITALS: BP 131/87; PULSE 62; RESP 22; TEMP 97.8; O2SAT 95
[2023-09-07] MEDS: MORPHINE SULFATE 4 MG/ML SYR IVP PRN (04:47)
[2023-09-07] MEDS: MIDODRINE 5 MG TAB PO SCH (05:50)
[2023-09-07 06:50] LABS: HEMATOCRIT 35.4 % (36-52); LYMPHOCYTES # (AUTO) 0.4 K/uL (2.0-11.5); LYMPHOCYTES % (AUTO) 5.8 % (20.5-51.1); MEAN CORPUSCULAR HEMOGLOBIN 24 pg (27-31); MEAN CORPUSCULAR HGB CONC 31 g/dL (33-37); MEAN CORPUSCULAR VOLUME 75.7 fL (80-94); MONOCYTES # (AUTO) 0.2 K/uL (0.8-1.0); MONOCYTES % (AUTO) 3.3 % (1.7-9.3); NEUTROPHILS # (AUTO) 5.9 K/uL (1.8-7.7); NEUTROPHILS % (AUTO) 90.9 % (42.2-75.2); PLATELET COUNT (AUTO) 164 K/uL (140-450); RED BLOOD CELL COUNT(AUTO) 4.68 MIL/uL (4.20-6.10); RED CELL DISTRIBUTION WIDTH 20.4 % (11.6-13.7); WHITE BLOOD COUNT (AUTO) 6.4 K/uL (4.8-10.8)
[2023-09-07 07:16] LABS: ALBUMIN 3.1 g/dL (3.4-5.0); ANION GAP 19.5 (8-16); CALCIUM 7.6 mg/dL (8.5-10.1); CARBON DIOXIDE 21.9 mmol/L (21-32); POTASSIUM 4.4 mmol/L (3.5-5.1); TOTAL BILIRUBIN 0.6 mg/dL (0.0-1.0); TOTAL PROTEIN, SERUM 8.7 g/dL (6.4-8.2)
[2023-09-07 07:53] LABS: CREATININE 8.1 mg/dL (0.6-1.3)
[2023-09-07 08:00] VITALS: PULSE 79; RESP 18; TEMP 97.1; O2SAT 98
[2023-09-07] MEDS ORDERED: VIT-B COMP/VIT-C/FOLIC ACID 1 TAB PO SCH (09:00)
[2023-09-07 09:01] VITALS: BP 131/87; PULSE 65; RESP 22; TEMP 97.3; O2SAT 92
== END 2023-09-07 10:05 | disposition left against medical advice (07) | DRG 720 ==
LOC: MED 09:57 → MTU 13:03 → MIC 14:43 → MTU 09-06 19:47
PROVIDERS: ADMIT Internal Medicine; ATTEND Internal Medicine
PROC: 02HV33Z Insertion of Infusion Device into Superior Vena Cava, Percutaneous Approach (ICD-10-PCS; 2023-09-04)
PROC: 05HY33Z Insertion of Infusion Device into Upper Vein, Percutaneous Approach (ICD-10-PCS; 2023-09-05)
PROC: 5A1D70Z Performance of Urinary Filtration, Intermittent, Less than 6 Hours Per Day (ICD-10-PCS; principal; 2023-09-06)
DX: A41.9 Sepsis, unspecified organism (principal); R65.21 Severe sepsis with septic shock; T86.12 Kidney transplant failure; N18.6 End stage renal disease; I12.0 Hypertensive chronic kidney disease with stage 5 chronic kidney disease or end stage renal disease; D63.1 Anemia in chronic kidney disease; I95.9 Hypotension, unspecified; E11.51 Type 2 diabetes mellitus with diabetic peripheral angiopathy without gangrene; E66.9 Obesity, unspecified; Y83.0 Surgical operation with transplant of whole organ as the cause of abnormal reaction of the patient, or of later complication, without mention of misadventure at the time of the procedure; D50.9 Iron deficiency anemia, unspecified; Z20.822 Contact with and (suspected) exposure to COVID-19; E11.22 Type 2 diabetes mellitus with diabetic chronic kidney disease; Z83.3 Family history of diabetes mellitus; Z99.2 Dependence on renal dialysis; Y92.89 Other specified places as the place of occurrence of the external cause; Z68.26 Body mass index [BMI] 26.0-26.9, adult; I73.9 Peripheral vascular disease, unspecified
CPT/HCPCS: 36415; 71045; 80048; 80053; 80076; 80202; 82948; 83605; 83880; 84484; 85025; 85610; 85730; 87040; 87081; 87186; 93005; 96361; 96365; 99291; C9113; J1644; J1720; J2270; J2405; J2543; J2765; J2997; J3370; J3490; J7030; J7060; Q0163